=== PATIENT | male | born 1945 | race Caucasian/White ===

== ENCOUNTER 2017-05-28 06:31 | Day surgery (SDC) | payer OTHER ==
[~2017-05-28] VITALS: Ht 180.3 cm; Wt 139.4 kg
[~2017-05-28 06:31] MED LIST: CAPE500; CEPH500 PO; COMBIVENT RESPIM4 GM; COMBIVENT RESPIM4 GM IH; Cleocin HCl150 MG PO; DIGO.125 PO; DIGO.25 PO; DIGOX125 MCG; GLIP5 PO; HYDCHL12.5; HYDCHL12.5 PO; Indomethacin50 MG PO; LISI20 PO; METF500 PO; METF500C PO; METO100ER PO; OMEG1CAP30; ONDA8 PO; PRAVASTATIN SOD10 MG PO; Pravastatin Sod40 MG; Toprol Xl200 MG; UBID100 PO; VITAMIN D3400 UNI1 PO; Vitamin C1000 M1 PO; WARF1; WARF6 PO; Zestril30 MG; Zestril40 MG; [UNRECOGNIZED DRUG - OTHER] PO
== END 2017-05-28 09:10 | disposition home or self-care (01) ==
LOC: ORSCSDS 06:31
PROVIDERS: Internal Medicine Gastroenterology
PROC: 0DBP8ZX Excision of Rectum, Via Natural or Artificial Opening Endoscopic, Diagnostic (ICD-10-PCS; principal; 2017-05-28 08:00)
PROC: 0DBH8ZX Excision of Cecum, Via Natural or Artificial Opening Endoscopic, Diagnostic (ICD-10-PCS; principal; 2017-05-28 08:00)
PROC: 0DBL8ZX Excision of Transverse Colon, Via Natural or Artificial Opening Endoscopic, Diagnostic (ICD-10-PCS; principal; 2017-05-28 08:00)
DX: K92.1 Melena (principal); D12.3 Benign neoplasm of transverse colon; K62.1 Rectal polyp; D12.2 Benign neoplasm of ascending colon; K57.30 Diverticulosis of large intestine without perforation or abscess without bleeding; Z85.038 Personal history of other malignant neoplasm of large intestine; I48.91 Unspecified atrial fibrillation; R06.00 Dyspnea, unspecified; J44.9 Chronic obstructive pulmonary disease, unspecified; E11.9 Type 2 diabetes mellitus without complications; R19.7 Diarrhea, unspecified; Z87.891 Personal history of nicotine dependence; E66.01 Morbid (severe) obesity due to excess calories; Z68.42 Body mass index [BMI] 45.0-49.9, adult; F32.9 Major depressive disorder, single episode, unspecified; I10 Essential (primary) hypertension; Z79.01 Long term (current) use of anticoagulants; Z79.84 Long term (current) use of oral hypoglycemic drugs; Z79.899 Other long term (current) drug therapy
CPT/HCPCS: 82947; 88305; J0330; J1980; J2250; J2405; J7120

== ENCOUNTER → 2018-04-10 | Outpatient (CLI) | payer OTHER | LOC: LAB 17:02 → LAB SHORT 17:02 | DX: E11.9 Type 2 diabetes mellitus without complications (principal) | CPT/HCPCS: 82043 ==

== ENCOUNTER 2018-11-26 12:57 | Emergency (ER) | payer OTHER ==
[~2018-11-26] VITALS: Ht 180.3 cm; Wt 149.7 kg
[2018-11-26] MEDS ORDERED: CLIN300 PO (14:20)
== END 2018-11-26 14:52 | disposition home or self-care (01) ==
LOC: ER 12:57
DX: L03.114 Cellulitis of left upper limb (principal); E11.9 Type 2 diabetes mellitus without complications; I10 Essential (primary) hypertension; J44.9 Chronic obstructive pulmonary disease, unspecified; I48.91 Unspecified atrial fibrillation; Z87.891 Personal history of nicotine dependence; Z79.899 Other long term (current) drug therapy; Z79.84 Long term (current) use of oral hypoglycemic drugs; Z79.01 Long term (current) use of anticoagulants
CPT/HCPCS: 73130; 99283-25

== ENCOUNTER 2019-07-27 18:34 | Emergency (ER) | payer OTHER ==
[~2019-07-27] VITALS: Ht 177.8 cm; Wt 149.7 kg
[~2019-07-27 18:34] MED LIST changes: +CLIN300 PO
[2019-07-27 19:01] LABS: BASOPHILS ABSOLUTE AUTO 0.01 K/mm3 (0.00-0.23); BASOPHILS PERCENT AUTO 0 % (0-2); EOSINOPHILS ABSOLUTE AUTO 0.05 K/mm3 (0.00-0.68); EOSINOPHILS PERCENT AUTO 1 % (0-6); Hematocrit 40.4 % (37.0-53.0); Hemoglobin 12.8 g/dL (13.5-17.5); IMMATURE GRAN ABSOLUTE AUTO 0.04 K/mm3 (0.00-0.10); IMMATURE GRAN PERCENT AUTO 1 % (0-1); LYMPHOCYTES ABSOLUTE AUTO 0.73 K/mm3 (0.84-5.20); LYMPHOCYTES PERCENT AUTO 14 % (21-46); MONOCYTES ABSOLUTE AUTO 0.99 K/mm3 (0.16-1.47); MONOCYTES PERCENT AUTO 19 % (4-13); Mean Corpuscular HGB 28.4 pg (26.0-34.0); Mean Corpuscular HGB Conc 31.7 g/dL (31.5-36.5); Mean Corpuscular Volume 90 fL (80-100); Mean Platelet Volume 10.1 fL (9.1-12.4); NEUTROPHILS ABSOLUTE AUTO 3.46 K/mm3 (1.96-9.15); NEUTROPHILS PERCENT AUTO 66 % (41-73); Platelet Count 189 K/mm3 (150-400); RDW Coefficient Variation 15.5 % (11.7-14.2); RDW Standard Deviation 51.6 fL (35.1-46.3); White Blood Cell Count 5.28 K/mm3 (4.00-11.30)
[2019-07-27 19:08] LABS: Bun/Creatinine Ratio 40.4 (12.0-20.0); Creatinine, Blood 1.56 mg/dL (0.60-1.20); Potassium, Blood 4.3 mmol/L (3.5-5.5)
== END 2019-07-27 21:55 | disposition home or self-care (01) ==
LOC: ER 18:34
PROVIDERS: Emergency Medicine
DX: R19.7 Diarrhea, unspecified (principal); N28.9 Disorder of kidney and ureter, unspecified; E11.9 Type 2 diabetes mellitus without complications; I48.91 Unspecified atrial fibrillation; I50.9 Heart failure, unspecified; J44.9 Chronic obstructive pulmonary disease, unspecified; E66.01 Morbid (severe) obesity due to excess calories; Z79.899 Other long term (current) drug therapy; Z79.84 Long term (current) use of oral hypoglycemic drugs; Z79.01 Long term (current) use of anticoagulants; Z68.42 Body mass index [BMI] 45.0-49.9, adult
CPT/HCPCS: 36415; 80048; 85025; 99284

== ENCOUNTER → 2019-08-16 | Outpatient (CLI) | payer OTHER ==
[2019-08-16 09:57] LABS: International Normalized Ratio 2.1; Prothrombin Time Results 21.5 Sec (9.7-11.5)
== END | disposition home or self-care (01) ==
LOC: LAB 09:12 → LAB SHORT 09:12
PROVIDERS: Nurse Practitioner Family
DX: Z79.01 Long term (current) use of anticoagulants (principal); Z51.81 Encounter for therapeutic drug level monitoring
CPT/HCPCS: 85610

== ENCOUNTER 2021-01-12 09:08 | Emergency (ER) | payer OTHER ==
[~2021-01-12] VITALS: Ht 180.3 cm; Wt 136.1 kg
[2021-01-12] MEDS ORDERED: XARELTO20 MG PO (09:34)
[2021-01-12] MEDS ORDERED: TAMS.4ER PO (09:35)
[2021-01-12 09:37] LABS: BASOPHILS ABSOLUTE AUTO 0.03 K/mm3 (0.00-0.23); BASOPHILS PERCENT AUTO 0 % (0-2); EOSINOPHILS ABSOLUTE AUTO 0.01 K/mm3 (0.00-0.68); EOSINOPHILS PERCENT AUTO 0 % (0-6); Hematocrit 40.5 % (37.0-53.0); Hemoglobin 12.9 g/dL (13.5-17.5); IMMATURE GRAN ABSOLUTE AUTO 0.08 K/mm3 (0.00-0.10); IMMATURE GRAN PERCENT AUTO 1 % (0-1); LYMPHOCYTES ABSOLUTE AUTO 0.27 K/mm3 (0.84-5.20); LYMPHOCYTES PERCENT AUTO 2 % (21-46); MONOCYTES ABSOLUTE AUTO 0.65 K/mm3 (0.16-1.47); MONOCYTES PERCENT AUTO 4 % (4-13); Mean Corpuscular HGB 29.7 pg (26.0-34.0); Mean Corpuscular HGB Conc 31.9 g/dL (31.5-36.5); Mean Corpuscular Volume 93 fL (80-100); Mean Platelet Volume 10.2 fL (9.1-12.4); NEUTROPHILS ABSOLUTE AUTO 15.13 K/mm3 (1.96-9.15); NEUTROPHILS PERCENT AUTO 94 % (41-73); Platelet Count 152 K/mm3 (150-400); RDW Coefficient Variation 15.3 % (11.7-14.2); RDW Standard Deviation 52.8 fL (35.1-46.3); Red Blood Cell Count 4.35 M/mm3 (4.30-5.90); White Blood Cell Count 16.17 K/mm3 (4.00-11.30)
[2021-01-12 11:24] LABS: Source, Urine Voided
[2021-01-12 11:33] LABS: Bilirubin, Urine Neg (Neg); Blood, Urine 2+ (Neg); Glucose Qualitative, Urine Neg (Neg); Ketones, Urine Neg (Neg); Leukocyte Esterase, Urine Neg (Neg); Nitrite, Urine Neg (Neg); Protein, Urine 3+ (Neg); Urobilinogen, Urine NORM (Normal)
[2021-01-12 11:38] LABS: Appearance, Urine Clear (Clear); Color, Urine Yellow (P-Yellow)
[2021-01-12 11:44] LABS: Bun/Creatinine Ratio 32.5 (12.0-20.0); Calcium, Blood 9.3 mg/dL (8.5-10.1); Creatinine, Blood 1.23 mg/dL (0.60-1.20); Potassium, Blood 4.6 mmol/L (3.5-5.5)
[2021-01-12 11:57] LABS: Bacteria Not Seen /hpf; Red Blood Cells, Urine 0-2 /hpf (0-2); Squamous Epithelial Cells Rare /hpf (Few); White Blood Cells, Urine 0-2 /hpf (0-5)
[2021-01-12 12:01] LABS: Creatine Kinase MB 4.7 ng/mL (0.0-3.6)
== END 2021-01-12 12:46 | disposition home or self-care (01) ==
LOC: ER 09:08
PROVIDERS: Emergency Medicine
DX: S50.812A Abrasion of left forearm, initial encounter (principal); R53.1 Weakness; E11.9 Type 2 diabetes mellitus without complications; Z79.899 Other long term (current) drug therapy; I10 Essential (primary) hypertension; J44.9 Chronic obstructive pulmonary disease, unspecified; I48.91 Unspecified atrial fibrillation; Z87.891 Personal history of nicotine dependence; W19.XXXA Unspecified fall, initial encounter
CPT/HCPCS: 80048; 81001; 82550; 82553; 83735; 85025; 93005; 93010; 99285-25

== ENCOUNTER 2021-06-07 20:38 | Emergency (ER) | payer OTHER ==
[~2021-06-07] VITALS: Ht 180.3 cm; Wt 149.7 kg
[~2021-06-07 20:38] MED LIST changes: +TAMS.4ER PO; +XARELTO20 MG PO
[2021-06-07 21:08] LABS: BASOPHILS ABSOLUTE AUTO 0.02 K/mm3 (0.00-0.23); BASOPHILS PERCENT AUTO 0 % (0-2); EOSINOPHILS ABSOLUTE AUTO 0.13 K/mm3 (0.00-0.68); EOSINOPHILS PERCENT AUTO 2 % (0-6); Hematocrit 40.3 % (37.0-53.0); Hemoglobin 12.8 g/dL (13.5-17.5); IMMATURE GRAN ABSOLUTE AUTO 0.06 K/mm3 (0.00-0.10); IMMATURE GRAN PERCENT AUTO 1 % (0-1); LYMPHOCYTES ABSOLUTE AUTO 1.18 K/mm3 (0.84-5.20); LYMPHOCYTES PERCENT AUTO 17 % (21-46); MONOCYTES ABSOLUTE AUTO 0.51 K/mm3 (0.16-1.47); MONOCYTES PERCENT AUTO 7 % (4-13); Mean Corpuscular HGB 29.9 pg (26.0-34.0); Mean Corpuscular HGB Conc 31.8 g/dL (31.5-36.5); Mean Corpuscular Volume 94 fL (80-100); Mean Platelet Volume 10.1 fL (9.1-12.4); NEUTROPHILS ABSOLUTE AUTO 5.13 K/mm3 (1.96-9.15); NEUTROPHILS PERCENT AUTO 73 % (41-73); Platelet Count 163 K/mm3 (150-400); RDW Coefficient Variation 15.3 % (11.7-14.2); RDW Standard Deviation 52.7 fL (35.1-46.3); Red Blood Cell Count 4.28 M/mm3 (4.30-5.90); White Blood Cell Count 7.03 K/mm3 (4.00-11.30)
[2021-06-07 21:17] LABS: Anion Gap 6 mmol/L (6-16); Blood Urea Nitrogen 39 mg/dL (8-24); Bun/Creatinine Ratio 38.2 (12.0-20.0); CO2, Blood 26 mmol/L (21-32); Calcium, Blood 9.4 mg/dL (8.5-10.1); Chloride, Blood 106 mmol/L (98-108); Creatinine, Blood 1.02 mg/dL (0.60-1.20); Glomerular Filtration Rate >60 (60-); Glucose, Blood 155 mg/dL (70-99); Potassium, Blood 4.6 mmol/L (3.5-5.5); Sodium, Blood 138 mmol/L (136-145)
[2021-06-07 22:12] LABS: International Normalized Ratio 1.1; Prothrombin Time Results 11.5 Sec (9.7-11.5)
[2021-06-07] MEDS ORDERED: CONSTULOSE10 GM/155 PO (23:25)
[2021-06-07] MEDS ORDERED: DOC250 PO (23:25)
== END 2021-06-07 22:00 | disposition home or self-care (01) ==
LOC: ER 20:38
PROVIDERS: Student in an Organized Health Care Education/Training Program
DX: K92.1 Melena (principal); D64.9 Anemia, unspecified; K59.00 Constipation, unspecified; T45.515A Adverse effect of anticoagulants, initial encounter; Z87.891 Personal history of nicotine dependence
CPT/HCPCS: 36415; 72193; 80048; 82272; 85025; 85610; 85730; 86850; 86900; 86901; 93005; 93010; 99284-25; Q9967

== ENCOUNTER → 2022-06-20 | Outpatient (CLI) | payer OTHER ==
[~2022-06-20] MED LIST changes: +CONSTULOSE10 GM/155 PO; +DOC250 PO
[2022-06-20 11:39] LABS: BASOPHILS ABSOLUTE AUTO 0.02 K/mm3 (0.00-0.23); BASOPHILS PERCENT AUTO 0 % (0-2); EOSINOPHILS ABSOLUTE AUTO 0.13 K/mm3 (0.00-0.68); EOSINOPHILS PERCENT AUTO 2 % (0-6); Hematocrit 35.8 % (37.0-53.0); Hemoglobin 11.5 g/dL (13.5-17.5); IMMATURE GRAN ABSOLUTE AUTO 0.01 K/mm3 (0.00-0.10); IMMATURE GRAN PERCENT AUTO 0 % (0-1); LYMPHOCYTES ABSOLUTE AUTO 1.11 K/mm3 (0.84-5.20); LYMPHOCYTES PERCENT AUTO 17 % (21-46); MONOCYTES ABSOLUTE AUTO 0.47 K/mm3 (0.16-1.47); MONOCYTES PERCENT AUTO 7 % (4-13); Mean Corpuscular HGB 29.7 pg (26.0-34.0); Mean Corpuscular HGB Conc 32.1 g/dL (31.5-36.5); Mean Corpuscular Volume 93 fL (80-100); Mean Platelet Volume 11.1 fL (9.1-12.4); NEUTROPHILS ABSOLUTE AUTO 4.99 K/mm3 (1.96-9.15); NEUTROPHILS PERCENT AUTO 74 % (41-73); Platelet Count 168 K/mm3 (150-400); RDW Coefficient Variation 14.6 % (11.7-14.2); RDW Standard Deviation 49.9 fL (35.1-46.3); Red Blood Cell Count 3.87 M/mm3 (4.30-5.90); White Blood Cell Count 6.73 K/mm3 (4.00-11.30)
[2022-06-20 12:09] LABS: Alanine Aminotransfer (ALT/SGP 15 U/L (12-78); Albumin, Blood 3.7 g/dL (3.4-5.0); Alk Phos 52 U/L (50-136); Anion Gap 5 mmol/L (6-16); Aspartate Aminotrans (AST/SGOT 13 U/L (12-37); Bilirubin, Total 0.6 mg/dL (0.1-1.0); Blood Urea Nitrogen 41 mg/dL (8-24); Bun/Creatinine Ratio 45.3 (12.0-20.0); CHOL/HDL RATIO 3.4; CO2, Blood 24 mmol/L (21-32); Calcium, Blood 9.1 mg/dL (8.5-10.1); Chloride, Blood 107 mmol/L (98-108); Cholesterol 105 mg/dL (50-200); Creatinine, Blood 0.91 mg/dL (0.60-1.20); Globulin, Blood 3.6 g/dL (2.2-4.0); Glomerular Filtration Rate 87 (60-); Glucose, Blood 215 mg/dL (70-99); HDL Cholesterol 31 mg/dL (>39); LDL/HDL RATIO 1.6; Low Density Lipoprotein Chol 48 mg/dL (0-110); Potassium, Blood 4.5 mmol/L (3.5-5.5); Sodium, Blood 136 mmol/L (136-145); Total Protein, Blood 7.3 g/dL (6.4-8.2); Triglycerides 128 mg/dL (30-160); Very Low Density Lipoprot Chol 25 mg/dL (6-32)
== END | disposition home or self-care (01) ==
LOC: LAB SHORT 08:40
PROVIDERS: Nurse Practitioner Family
DX: E11.51 Type 2 diabetes mellitus with diabetic peripheral angiopathy without gangrene (principal); E11.42 Type 2 diabetes mellitus with diabetic polyneuropathy; E11.59 Type 2 diabetes mellitus with other circulatory complications; E11.69 Type 2 diabetes mellitus with other specified complication; N40.1 Benign prostatic hyperplasia with lower urinary tract symptoms
CPT/HCPCS: 80053; 80061; 84153; 85025

== ENCOUNTER 2022-08-05 22:08 | Emergency (ER) | payer OTHER ==
[~2022-08-05] VITALS: Ht 180.3 cm; Wt 131.5 kg
[2022-08-05 22:31] VITALS: BP 112/66
== END 2022-08-06 01:47 | disposition home or self-care (01) ==
LOC: ER 22:08
DX: Z04.3 Encounter for examination and observation following other accident (principal); W06.XXXA Fall from bed, initial encounter; E11.9 Type 2 diabetes mellitus without complications; I10 Essential (primary) hypertension; J44.9 Chronic obstructive pulmonary disease, unspecified; I48.91 Unspecified atrial fibrillation; Z79.899 Other long term (current) drug therapy; Z79.84 Long term (current) use of oral hypoglycemic drugs; Z79.01 Long term (current) use of anticoagulants; Z87.891 Personal history of nicotine dependence
CPT/HCPCS: 99283

== ENCOUNTER 2022-11-08 13:34 | Day surgery (SDC) | payer OTHER ==
[~2022-11-08] VITALS: Ht 180.3 cm; Wt 112.0 kg
[2022-11-08 16:14] VITALS: BP 107/65
== END 2022-11-08 15:11 | disposition home or self-care (01) ==
LOC: ORSCSDS 13:34
PROVIDERS: Internal Medicine Gastroenterology
PROC: 0DBM8ZX Excision of Descending Colon, Via Natural or Artificial Opening Endoscopic, Diagnostic (ICD-10-PCS; principal; 2022-11-08 15:00)
PROC: 0DBK8ZX Excision of Ascending Colon, Via Natural or Artificial Opening Endoscopic, Diagnostic (ICD-10-PCS; principal; 2022-11-08 15:00)
DX: K92.1 Melena (principal); D12.2 Benign neoplasm of ascending colon; D12.4 Benign neoplasm of descending colon; Z85.048 Personal history of other malignant neoplasm of rectum, rectosigmoid junction, and anus; K57.30 Diverticulosis of large intestine without perforation or abscess without bleeding; K64.8 Other hemorrhoids; E11.9 Type 2 diabetes mellitus without complications; Z87.891 Personal history of nicotine dependence; I10 Essential (primary) hypertension; J45.909 Unspecified asthma, uncomplicated; I48.20 Chronic atrial fibrillation, unspecified; Z79.01 Long term (current) use of anticoagulants; Z79.84 Long term (current) use of oral hypoglycemic drugs; Z79.899 Other long term (current) drug therapy; Z79.4 Long term (current) use of insulin; J44.9 Chronic obstructive pulmonary disease, unspecified; E66.01 Morbid (severe) obesity due to excess calories; Z68.42 Body mass index [BMI] 45.0-49.9, adult
CPT/HCPCS: 82947; 88305; J0461; J2001; J2405; J2704; J7120; Q9968

== ENCOUNTER 2023-04-09 20:27 | Emergency (ER) | payer OTHER ==
[~2023-04-09] VITALS: Ht 180.3 cm; Wt 109.8 kg
[2023-04-09 21:21] LABS: BASOPHILS ABSOLUTE AUTO 0.01 K/mm3 (0.00-0.23); BASOPHILS PERCENT AUTO 0 % (0-2); EOSINOPHILS ABSOLUTE AUTO 0.09 K/mm3 (0.00-0.68); EOSINOPHILS PERCENT AUTO 2 % (0-6); Hematocrit 22.2 % (37.0-53.0); Hemoglobin 6.9 g/dL (13.5-17.5); IMMATURE GRAN ABSOLUTE AUTO 0.01 K/mm3 (0.00-0.10); IMMATURE GRAN PERCENT AUTO 0 % (0-1); LYMPHOCYTES ABSOLUTE AUTO 0.94 K/mm3 (0.84-5.20); LYMPHOCYTES PERCENT AUTO 18 % (21-46); MONOCYTES ABSOLUTE AUTO 0.38 K/mm3 (0.16-1.47); MONOCYTES PERCENT AUTO 7 % (4-13); Mean Corpuscular HGB Conc 31.1 g/dL (31.5-36.5); Mean Corpuscular Volume 90 fL (80-100); Mean Platelet Volume 10.8 fL (9.1-12.4); NEUTROPHILS ABSOLUTE AUTO 3.92 K/mm3 (1.96-9.15); NEUTROPHILS PERCENT AUTO 73 % (41-73); Platelet Count 186 K/mm3 (150-400); RDW Coefficient Variation 13.5 % (11.7-14.2); Red Blood Cell Count 2.46 M/mm3 (4.30-5.90); White Blood Cell Count 5.35 K/mm3 (4.00-11.30)
[2023-04-09 21:42] LABS: Albumin, Blood 3.7 g/dL (3.4-5.0); Albumin/Globulin Ratio 1.1 (0.8-1.8); Bilirubin, Total 0.3 mg/dL (0.1-1.0); Bun/Creatinine Ratio 38.7 (12.0-20.0); Calcium, Blood 9.1 mg/dL (8.5-10.1); Creatinine, Blood 1.19 mg/dL (0.60-1.20); Globulin, Blood 3.4 g/dL (2.2-4.0); International Normalized Ratio 1.13; Potassium, Blood 4.4 mmol/L (3.5-5.5); Prothrombin Time Results 11.8 Sec (9.7-11.5); Total Protein, Blood 7.1 g/dL (6.4-8.2)
[2023-04-10 02:32] LABS: BASOPHILS ABSOLUTE AUTO 0.02 K/mm3 (0.00-0.23); BASOPHILS PERCENT AUTO 0 % (0-2); EOSINOPHILS ABSOLUTE AUTO 0.08 K/mm3 (0.00-0.68); EOSINOPHILS PERCENT AUTO 1 % (0-6); Hematocrit 23.5 % (37.0-53.0); Hemoglobin 7.5 g/dL (13.5-17.5); IMMATURE GRAN ABSOLUTE AUTO 0.02 K/mm3 (0.00-0.10); IMMATURE GRAN PERCENT AUTO 0 % (0-1); LYMPHOCYTES ABSOLUTE AUTO 1.21 K/mm3 (0.84-5.20); LYMPHOCYTES PERCENT AUTO 21 % (21-46); MONOCYTES ABSOLUTE AUTO 0.49 K/mm3 (0.16-1.47); MONOCYTES PERCENT AUTO 9 % (4-13); Mean Corpuscular HGB 28.7 pg (26.0-34.0); Mean Corpuscular HGB Conc 31.9 g/dL (31.5-36.5); Mean Corpuscular Volume 90 fL (80-100); Mean Platelet Volume 10.6 fL (9.1-12.4); NEUTROPHILS ABSOLUTE AUTO 3.97 K/mm3 (1.96-9.15); NEUTROPHILS PERCENT AUTO 69 % (41-73); Platelet Count 173 K/mm3 (150-400); RDW Coefficient Variation 13.6 % (11.7-14.2); RDW Standard Deviation 44.4 fL (35.1-46.3); Red Blood Cell Count 2.61 M/mm3 (4.30-5.90); White Blood Cell Count 5.79 K/mm3 (4.00-11.30)
[2023-04-10 03:12] VITALS: BP 123/72
== END 2023-04-10 03:28 | disposition home or self-care (01) ==
LOC: ER 20:27
PROVIDERS: Physician Assistant; Student in an Organized Health Care Education/Training Program
DX: K92.1 Melena (principal); E11.9 Type 2 diabetes mellitus without complications; I10 Essential (primary) hypertension; J44.9 Chronic obstructive pulmonary disease, unspecified; Z87.891 Personal history of nicotine dependence; Z79.899 Other long term (current) drug therapy
CPT/HCPCS: 36430; 80053; 82272; 85025; 85610; 85730; 86850; 86900; 86901; 86923; 93005; 93010; 99284-25; J7030; P9016

== ENCOUNTER 2023-04-16 19:13 | Emergency (ER) | payer OTHER ==
[~2023-04-16] VITALS: Ht 180.3 cm; Wt 107.0 kg
[2023-04-16 19:43] LABS: BASOPHILS ABSOLUTE AUTO 0.03 K/mm3 (0.00-0.23); BASOPHILS PERCENT AUTO 1 % (0-2); EOSINOPHILS ABSOLUTE AUTO 0.05 K/mm3 (0.00-0.68); EOSINOPHILS PERCENT AUTO 1 % (0-6); Hematocrit 25.6 % (37.0-53.0); Hemoglobin 7.8 g/dL (13.5-17.5); IMMATURE GRAN ABSOLUTE AUTO 0.02 K/mm3 (0.00-0.10); IMMATURE GRAN PERCENT AUTO 0 % (0-1); LYMPHOCYTES ABSOLUTE AUTO 1.27 K/mm3 (0.84-5.20); LYMPHOCYTES PERCENT AUTO 21 % (21-46); MONOCYTES ABSOLUTE AUTO 0.48 K/mm3 (0.16-1.47); MONOCYTES PERCENT AUTO 8 % (4-13); Mean Corpuscular HGB 27.6 pg (26.0-34.0); Mean Corpuscular HGB Conc 30.5 g/dL (31.5-36.5); Mean Corpuscular Volume 91 fL (80-100); Mean Platelet Volume 10.8 fL (9.1-12.4); NEUTROPHILS ABSOLUTE AUTO 4.19 K/mm3 (1.96-9.15); NEUTROPHILS PERCENT AUTO 70 % (41-73); Platelet Count 186 K/mm3 (150-400); RDW Coefficient Variation 14.3 % (11.7-14.2); RDW Standard Deviation 47.3 fL (35.1-46.3); Red Blood Cell Count 2.83 M/mm3 (4.30-5.90); White Blood Cell Count 6.04 K/mm3 (4.00-11.30)
[2023-04-16 20:05] LABS: Albumin, Blood 3.7 g/dL (3.4-5.0); Bilirubin, Total 0.3 mg/dL (0.1-1.0); Bun/Creatinine Ratio 40.2 (12.0-20.0); Calcium, Blood 9.4 mg/dL (8.5-10.1); Creatinine, Blood 1.22 mg/dL (0.60-1.20); Globulin, Blood 3.6 g/dL (2.2-4.0); Potassium, Blood 4.5 mmol/L (3.5-5.5); Total Protein, Blood 7.3 g/dL (6.4-8.2)
[2023-04-16 22:20] LABS: Chloride (POC) 108 mmol/L (98-108); Creatinine (POC) 1.3 mg/dL (0.8-1.3); Glucose (ISTAT POC) 96 mg/dL (70-99); Hemoglobin (POC) 7.8 g/dL (13.5-17.5); Potassium (POC) 4.7 mmol/L (3.5-5.5); Sodium (POC) 139 mmol/L (135-148); Total CO2 (POC) 21 mmol/L (21-32)
[2023-04-16 23:30] VITALS: BP 126/89
== END 2023-04-16 23:45 | disposition home or self-care (01) ==
LOC: ER 19:13
PROVIDERS: Student in an Organized Health Care Education/Training Program
DX: K92.1 Melena (principal); T45.515A Adverse effect of anticoagulants, initial encounter; Z87.19 Personal history of other diseases of the digestive system; E11.9 Type 2 diabetes mellitus without complications; I10 Essential (primary) hypertension; J44.9 Chronic obstructive pulmonary disease, unspecified; I48.91 Unspecified atrial fibrillation; Z87.891 Personal history of nicotine dependence; Z79.84 Long term (current) use of oral hypoglycemic drugs; Z79.01 Long term (current) use of anticoagulants; Z79.899 Other long term (current) drug therapy
CPT/HCPCS: 80047; 80053; 85014; 85018; 85025; 86850; 86900; 86901; 93005; 93010; 99285-25

== ENCOUNTER → 2023-04-16 | Outpatient (CLI) | payer OTHER ==
[~2023-04-16] MED LIST changes: -HYDCHL12.5 PO; +HYDCHL25 PO
[2023-04-16 16:50] LABS: Hematocrit 24.9 % (37.0-53.0); Hemoglobin 7.7 g/dL (13.5-17.5)
== END | disposition home or self-care (01) ==
LOC: LAB SHORT 15:43 → LAB 15:43
PROVIDERS: Nurse Practitioner Family
DX: K92.1 Melena (principal)
CPT/HCPCS: 85014; 85018

== ENCOUNTER 2023-04-20 19:00 | Emergency (ER) | payer OTHER ==
[~2023-04-20] VITALS: Ht 180.3 cm; Wt 106.6 kg
[2023-04-20 19:21] LABS: BASOPHILS ABSOLUTE AUTO 0.01 K/mm3 (0.00-0.23); BASOPHILS PERCENT AUTO 0 % (0-2); EOSINOPHILS PERCENT AUTO 2 % (0-6); Hematocrit 23.1 % (37.0-53.0); Hemoglobin 7.2 g/dL (13.5-17.5); IMMATURE GRAN ABSOLUTE AUTO 0.02 K/mm3 (0.00-0.10); IMMATURE GRAN PERCENT AUTO 0 % (0-1); LYMPHOCYTES ABSOLUTE AUTO 1.56 K/mm3 (0.84-5.20); LYMPHOCYTES PERCENT AUTO 28 % (21-46); MONOCYTES ABSOLUTE AUTO 0.49 K/mm3 (0.16-1.47); MONOCYTES PERCENT AUTO 9 % (4-13); Mean Corpuscular HGB 27.5 pg (26.0-34.0); Mean Corpuscular HGB Conc 31.2 g/dL (31.5-36.5); Mean Corpuscular Volume 88 fL (80-100); NEUTROPHILS ABSOLUTE AUTO 3.46 K/mm3 (1.96-9.15); NEUTROPHILS PERCENT AUTO 61 % (41-73); Platelet Count 196 K/mm3 (150-400); RDW Coefficient Variation 14.3 % (11.7-14.2); RDW Standard Deviation 45.6 fL (35.1-46.3); Red Blood Cell Count 2.62 M/mm3 (4.30-5.90); White Blood Cell Count 5.64 K/mm3 (4.00-11.30)
[2023-04-20 19:39] LABS: Albumin, Blood 3.7 g/dL (3.4-5.0); Albumin/Globulin Ratio 1.2 (0.8-1.8); Bilirubin, Total 0.4 mg/dL (0.1-1.0); Bun/Creatinine Ratio 29.9 (12.0-20.0); Calcium, Blood 9.1 mg/dL (8.5-10.1); Creatinine, Blood 1.27 mg/dL (0.60-1.20); Globulin, Blood 3.2 g/dL (2.2-4.0); Potassium, Blood 4.4 mmol/L (3.5-5.5); Total Protein, Blood 6.9 g/dL (6.4-8.2)
[2023-04-21 01:43] VITALS: BP 118/60
== END 2023-04-21 01:43 | disposition home or self-care (01) ==
LOC: ER 19:00
PROVIDERS: Physician Assistant
DX: K92.1 Melena (principal); E11.9 Type 2 diabetes mellitus without complications; I10 Essential (primary) hypertension; J44.9 Chronic obstructive pulmonary disease, unspecified; I48.91 Unspecified atrial fibrillation; Z86.010 Personal history of colon polyps; Z79.899 Other long term (current) drug therapy; Z79.84 Long term (current) use of oral hypoglycemic drugs; Z79.01 Long term (current) use of anticoagulants
CPT/HCPCS: 74174; 80053; 82272; 85025; 86850; 86900; 86901; 99284-25; Q9967

== ENCOUNTER 2023-04-25 02:08 | Emergency (ER) | payer OTHER ==
[~2023-04-25] VITALS: Ht 180.3 cm; Wt 107.0 kg
[2023-04-25 02:32] LABS: BASOPHILS ABSOLUTE AUTO 0.01 K/mm3 (0.00-0.23); BASOPHILS PERCENT AUTO 0 % (0-2); EOSINOPHILS ABSOLUTE AUTO 0.11 K/mm3 (0.00-0.68); EOSINOPHILS PERCENT AUTO 2 % (0-6); Hematocrit 25.5 % (37.0-53.0); Hemoglobin 7.7 g/dL (13.5-17.5); IMMATURE GRAN ABSOLUTE AUTO 0.02 K/mm3 (0.00-0.10); IMMATURE GRAN PERCENT AUTO 0 % (0-1); LYMPHOCYTES ABSOLUTE AUTO 1.39 K/mm3 (0.84-5.20); LYMPHOCYTES PERCENT AUTO 24 % (21-46); MONOCYTES ABSOLUTE AUTO 0.45 K/mm3 (0.16-1.47); MONOCYTES PERCENT AUTO 8 % (4-13); Mean Corpuscular HGB Conc 30.2 g/dL (31.5-36.5); Mean Corpuscular Volume 90 fL (80-100); Mean Platelet Volume 10.5 fL (9.1-12.4); NEUTROPHILS ABSOLUTE AUTO 3.83 K/mm3 (1.96-9.15); NEUTROPHILS PERCENT AUTO 66 % (41-73); Platelet Count 204 K/mm3 (150-400); RDW Coefficient Variation 14.6 % (11.7-14.2); RDW Standard Deviation 46.7 fL (35.1-46.3); Red Blood Cell Count 2.85 M/mm3 (4.30-5.90); White Blood Cell Count 5.81 K/mm3 (4.00-11.30)
[2023-04-25 02:53] LABS: Albumin, Blood 3.8 g/dL (3.4-5.0); Albumin/Globulin Ratio 1.2 (0.8-1.8); Bilirubin, Total 0.5 mg/dL (0.1-1.0); Calcium, Blood 8.7 mg/dL (8.5-10.1); Creatinine, Blood 1.2 mg/dL (0.60-1.20); Globulin, Blood 3.3 g/dL (2.2-4.0); Potassium, Blood 4.4 mmol/L (3.5-5.5); Total Protein, Blood 7.1 g/dL (6.4-8.2)
[2023-04-25 04:30] VITALS: BP 113/52
== END 2023-04-25 04:37 | disposition home or self-care (01) ==
LOC: ER 02:08
PROVIDERS: Emergency Medicine
DX: K92.1 Melena (principal); E11.9 Type 2 diabetes mellitus without complications; I10 Essential (primary) hypertension; J44.9 Chronic obstructive pulmonary disease, unspecified; I48.91 Unspecified atrial fibrillation; Z79.01 Long term (current) use of anticoagulants; Z79.84 Long term (current) use of oral hypoglycemic drugs; Z79.899 Other long term (current) drug therapy
CPT/HCPCS: 80053; 85025; 86850; 86900; 86901; 99283

== ENCOUNTER 2024-02-04 18:55 | Emergency (ER) | payer OTHER ==
[~2024-02-04] VITALS: Ht 180.3 cm; Wt 96.2 kg
[2024-02-04 21:17] LABS: Source, Urine Clean Catch
[2024-02-04 21:29] LABS: Appearance, Urine Clear (Clear); Bilirubin, Urine Neg (Neg); Blood, Urine 3+ (Neg); Glucose Qualitative, Urine Neg (Neg); Ketones, Urine Neg (Neg); Leukocyte Esterase, Urine Neg (Neg); Nitrite, Urine Neg (Neg); Protein, Urine Neg (Neg); Specific Gravity, Urine 1.015 (1.003-1.022); Urobilinogen, Urine NORM (Normal)
[2024-02-04 21:30] LABS: Color, Urine Pale Yellow (P-Yellow)
[2024-02-04 21:46] LABS: Bacteria Not Seen /hpf; Red Blood Cells, Urine 0-2 /hpf (0-2); Squamous Epithelial Cells Rare /hpf (Few); White Blood Cells, Urine Not Seen /hpf (0-5)
[2024-02-04 21:49] LABS: BASOPHILS ABSOLUTE AUTO 0.03 K/mm3 (0.00-0.23); BASOPHILS PERCENT AUTO 0 % (0-2); EOSINOPHILS ABSOLUTE AUTO 0.11 K/mm3 (0.00-0.68); EOSINOPHILS PERCENT AUTO 1 % (0-6); Hematocrit 31.8 % (37.0-53.0); Hemoglobin 10.3 g/dL (13.5-17.5); IMMATURE GRAN ABSOLUTE AUTO 0.02 K/mm3 (0.00-0.10); IMMATURE GRAN PERCENT AUTO 0 % (0-1); LYMPHOCYTES PERCENT AUTO 17 % (21-46); MONOCYTES ABSOLUTE AUTO 0.48 K/mm3 (0.16-1.47); MONOCYTES PERCENT AUTO 6 % (4-13); Mean Corpuscular HGB 29.9 pg (26.0-34.0); Mean Corpuscular HGB Conc 32.4 g/dL (31.5-36.5); Mean Corpuscular Volume 92 fL (80-100); NEUTROPHILS ABSOLUTE AUTO 6.16 K/mm3 (1.96-9.15); NEUTROPHILS PERCENT AUTO 75 % (41-73); Platelet Count 143 K/mm3 (150-400); RDW Coefficient Variation 13.6 % (11.7-14.2); RDW Standard Deviation 46.1 fL (35.1-46.3); Red Blood Cell Count 3.44 M/mm3 (4.30-5.90)
[2024-02-04 22:14] LABS: Albumin, Blood 3.9 g/dL (3.4-5.0); Albumin/Globulin Ratio 1.2 (0.8-1.8); Bilirubin, Total 0.5 mg/dL (0.1-1.0); Calcium, Blood 9.4 mg/dL (8.5-10.1); Globulin, Blood 3.3 g/dL (2.2-4.0); Potassium, Blood 4.5 mmol/L (3.5-5.5); Total Protein, Blood 7.2 g/dL (6.4-8.2)
[2024-02-05 01:30] VITALS: BP 106/66
[2024-02-05] MEDS ORDERED: DIAPER RASH TOP (02:30)
[2024-02-05] MEDS ORDERED: VITAMIN A TOP PRN (02:35)
[2024-02-05] MEDS ORDERED: [UNRECOGNIZED DRUG - OTHER] TOP PRN (02:35)
== END 2024-02-05 02:52 | disposition home or self-care (01) ==
LOC: ER 18:55
PROVIDERS: Student in an Organized Health Care Education/Training Program
DX: K62.89 Other specified diseases of anus and rectum (principal); E11.9 Type 2 diabetes mellitus without complications; I10 Essential (primary) hypertension; J44.9 Chronic obstructive pulmonary disease, unspecified; I48.91 Unspecified atrial fibrillation; Z87.891 Personal history of nicotine dependence; Z79.84 Long term (current) use of oral hypoglycemic drugs; Z79.899 Other long term (current) drug therapy
CPT/HCPCS: 80053; 81001; 85025; 99283; A9270

== ENCOUNTER → 2024-07-06 | Outpatient (CLI) | payer OTHER ==
[~2024-07-06] MED LIST changes: +DIAPER RASH TOP
[2024-07-06 17:11] LABS: BASOPHILS ABSOLUTE AUTO 0.01 K/mm3 (0.00-0.23); BASOPHILS PERCENT AUTO 0 % (0-2); EOSINOPHILS ABSOLUTE AUTO 0.13 K/mm3 (0.00-0.68); EOSINOPHILS PERCENT AUTO 3 % (0-6); Hematocrit 32.9 % (37.0-53.0); Hemoglobin 10.5 g/dL (13.5-17.5); IMMATURE GRAN ABSOLUTE AUTO 0.01 K/mm3 (0.00-0.10); IMMATURE GRAN PERCENT AUTO 0 % (0-1); LYMPHOCYTES ABSOLUTE AUTO 0.73 K/mm3 (0.84-5.20); LYMPHOCYTES PERCENT AUTO 19 % (21-46); MONOCYTES PERCENT AUTO 8 % (4-13); Mean Corpuscular HGB 29.9 pg (26.0-34.0); Mean Corpuscular HGB Conc 31.9 g/dL (31.5-36.5); Mean Corpuscular Volume 94 fL (80-100); Mean Platelet Volume 11.8 fL (9.1-12.4); NEUTROPHILS ABSOLUTE AUTO 2.72 K/mm3 (1.96-9.15); NEUTROPHILS PERCENT AUTO 70 % (41-73); Platelet Count 128 K/mm3 (150-400); RDW Coefficient Variation 13.9 % (11.7-14.2); RDW Standard Deviation 47.1 fL (35.1-46.3); Red Blood Cell Count 3.51 M/mm3 (4.30-5.90)
== END ==
LOC: LAB 16:25 → LAB SHORT 16:25
PROVIDERS: Nurse Practitioner Family
DX: E11.51 Type 2 diabetes mellitus with diabetic peripheral angiopathy without gangrene (principal); E11.59 Type 2 diabetes mellitus with other circulatory complications; E11.42 Type 2 diabetes mellitus with diabetic polyneuropathy; E11.69 Type 2 diabetes mellitus with other specified complication
CPT/HCPCS: 85025

== ENCOUNTER 2024-07-27 19:42 | Observation (INO) | payer OTHER ==
[~2024-07-27] VITALS: Ht 180.3 cm; Wt 99.1 kg
[~2024-07-27 19:42] MED LIST changes: +DIGOX125 MC1 PO; -DIGOX125 MCG; -Pravastatin Sod40 MG; +Pravastatin Sod40 MG PO
[2024-07-27 20:25] LABS: BASOPHILS ABSOLUTE AUTO 0.02 K/mm3 (0.00-0.23); BASOPHILS PERCENT AUTO 0 % (0-2); EOSINOPHILS ABSOLUTE AUTO 0.14 K/mm3 (0.00-0.68); EOSINOPHILS PERCENT AUTO 2 % (0-6); Hematocrit 31.1 % (37.0-53.0); Hemoglobin 10.1 g/dL (13.5-17.5); IMMATURE GRAN ABSOLUTE AUTO 0.02 K/mm3 (0.00-0.10); IMMATURE GRAN PERCENT AUTO 0 % (0-1); LYMPHOCYTES ABSOLUTE AUTO 1.43 K/mm3 (0.84-5.20); LYMPHOCYTES PERCENT AUTO 23 % (21-46); MONOCYTES ABSOLUTE AUTO 0.52 K/mm3 (0.16-1.47); MONOCYTES PERCENT AUTO 8 % (4-13); Mean Corpuscular HGB 30.2 pg (26.0-34.0); Mean Corpuscular HGB Conc 32.5 g/dL (31.5-36.5); Mean Corpuscular Volume 93 fL (80-100); NEUTROPHILS ABSOLUTE AUTO 4.16 K/mm3 (1.96-9.15); NEUTROPHILS PERCENT AUTO 66 % (41-73); Platelet Count 118 K/mm3 (150-400); RDW Coefficient Variation 14.3 % (11.7-14.2); RDW Standard Deviation 49.2 fL (35.1-46.3); Red Blood Cell Count 3.34 M/mm3 (4.30-5.90); White Blood Cell Count 6.29 K/mm3 (4.00-11.30)
[2024-07-27 20:49] LABS: Albumin, Blood 3.7 g/dL (3.4-5.0); Albumin/Globulin Ratio 1.2 (0.8-1.8); Bilirubin, Total 0.3 mg/dL (0.1-1.0); Calcium, Blood 8.9 mg/dL (8.5-10.1); Creatinine, Blood 1.51 mg/dL (0.60-1.20); Globulin, Blood 3.2 g/dL (2.2-4.0); Potassium, Blood 4.3 mmol/L (3.5-5.5); Total Protein, Blood 6.9 g/dL (6.4-8.2)
[2024-07-27] MEDS ORDERED: Acetaminophen 325 MG TABLET PO PRN (22:40)
[2024-07-27] MEDS ORDERED: Ondansetron HCl 2 MG / ML 2ML Vial IV PRN (22:45)
[2024-07-27] MEDS ORDERED: Lactated Ringer's 1,000 ML IV SCH (23:00)
[2024-07-27] MEDS ORDERED: ORGOVYX120 MG PO (23:11)
[2024-07-27 23:56] VITALS: BP 124/75
[2024-07-28] MEDS ORDERED: Phenylephrine HCl 100 MCG/ML-NS 10MLSYR (1MG/10ML) IV ONE (00:11)
[2024-07-28 02:24] LABS: Hematocrit 29.3 % (37.0-53.0); Hemoglobin 9.7 g/dL (13.5-17.5)
[2024-07-28 02:41] LABS: Albumin, Blood 3.6 g/dL (3.4-5.0); Albumin/Globulin Ratio 1.2 (0.8-1.8); Bilirubin, Total 0.4 mg/dL (0.1-1.0); Calcium, Blood 8.9 mg/dL (8.5-10.1); Creatinine, Blood 1.31 mg/dL (0.60-1.20); Globulin, Blood 2.9 g/dL (2.2-4.0); Magnesium, Blood 2.1 mg/dL (1.6-2.4); Potassium, Blood 4.4 mmol/L (3.5-5.5); Total Protein, Blood 6.5 g/dL (6.4-8.2)
[2024-07-28 02:54] VITALS: BP 120/67
--- NOTE | 2024-07-28 05:46 | NUR ---
Shift Summary Pt admitted from ED for GI bleed. He was having loose bloody BMs at home and in the ED, after arriving to this unit he had one other loose BM since arrival but it appeared to have no blood. Pt has been NPO in anticipation of scope procedure today. He is AOx4, ind in the room, cooperative with care. On tele running afib at 67. SCDs on as ordered.
[2024-07-28 07:30] VITALS: BP 131/65
[2024-07-28 07:47] LABS: Hematocrit 30.9 % (37.0-53.0); Hemoglobin 10.1 g/dL (13.5-17.5)
[2024-07-28] MEDS ORDERED: Docusate Sodium 100 MG Cap PO SCH (09:00)
[2024-07-28] MEDS ORDERED: Sod Phosphate/Sod Biphosphate 132 ML BTL PR ONE ×2 (11:20→12:30)
[2024-07-28 11:52] VITALS: BP 115/65
--- NOTE | 2024-07-28 13:55 | NUR ---
CLIENT OUT TO DAY SURGERY AT 1350.
[2024-07-28 14:05] VITALS: BP 146/79
[2024-07-28 14:15] LABS: Hematocrit 34.3 % (37.0-53.0); Hemoglobin 11.4 g/dL (13.5-17.5)
--- NOTE | 2024-07-28 14:16 | NUR ---
History, Chart, Medications and Allergies reviewed before start of procedure. Patient confirms NPO status and agrees with scheduled surgery. Pre-Op teaching done. Pt verbalizes understanding. Lungs coarse, clears with cough. Reports baseline SOB.
[2024-07-28] MEDS ORDERED: propofoL 20 ML IV ONE ×2 (14:49→14:55)
--- NOTE | 2024-07-28 14:57 | NUR ---
07/28/24 1457 Ellie Araiza History, Chart, Medications and Allergies reviewed before start of procedure. See Anesthesia record for Dr. Karlo colbert.
[2024-07-28 15:44] VITALS: BP 122/60
--- NOTE | 2024-07-28 17:11 | NUR ---
SHIFT SUMMARY A&O X4. SIGMOIDOSCOPY PERFORMED. DIET CHANGED TO CONSITENT CARB. BG CHANGED TO AC & HS. TELE = AFIB, BBB, PVC @ 55. CLIENT AMBULATED IN ROOM. BG = 107, 113, AND 160. BED IN LOW SETTING. CALL LIGHT WITHIN REACH.
[2024-07-28] MEDS ORDERED: OYSTER SHELL C500 MG PO (17:26)
[2024-07-28] MEDS ORDERED: ASPI325 PO (17:26)
[2024-07-28] MEDS ORDERED: ASCO500 PO (17:27)
[2024-07-28] MEDS ORDERED: Artificial Tear15 ML BOTHEYES (17:28)
[2024-07-28] MEDS ORDERED: FERSU300 PO (17:28)
[2024-07-28] MEDS ORDERED: FOLI1 PO (17:28)
[2024-07-28] MEDS ORDERED: Vitamin D1000 UNI1 PO (17:28)
[2024-07-28 19:47] VITALS: BP 115/67
[2024-07-29 00:05] VITALS: BP 145/85
[2024-07-29 04:09] VITALS: BP 125/65
--- NOTE | 2024-07-29 04:29 | NUR ---
SHIFT SUMMARY: PT AOX4 IND WITH URINAL IN THE ROOM, CALLS APPROPRIATELY AND IS ABLE TO MAKE NEEDS KNOWN. [place]. ANXIOUS ABOUT BEING ABLE TO GO HOME DURING THE DAY. STATES TO BE FEELING BETTER. DENIES ANY CP, OR SOB. TOLERATING MEDICATIONS WELL. NO ACUTE EVENTS OVERNIGHT. PT IN BED RESTING, BED IN LOWEST POSITION, CALL LIGHT IN REACH. CONTINUING CARE.
[2024-07-29 07:12] VITALS: BP 140/71
[2024-07-29] MEDS ORDERED: Polyethylene Glycol 3350 17 gm PO SCH (09:00)
[2024-07-29 09:22] LABS: Bun/Creatinine Ratio 43.4 (12.0-20.0); Calcium, Blood 9.6 mg/dL (8.5-10.1); Creatinine, Blood 0.83 mg/dL (0.60-1.20); Potassium, Blood 4.2 mmol/L (3.5-5.5)
[2024-07-29 11:13] VITALS: BP 124/90
--- NOTE | 2024-07-29 13:38 | NUR ---
DISCHARGE NOTE PT D/C HOME AT 1315. PT PROVIDED W/ VERBAL AND WRITTEN INSTRUCTIONS AND REPORTED UNDERSTANDING. PT A&OX4, VSS, AMB IND, TOLERATING PO, VOIDING, AND DENIED PAIN. BELONGINGS WERE RETURNED AND PT ESCOURTED OUT VIA W/C BY RUTHY GEORGE.
== END 2024-07-29 13:33 | disposition home or self-care (01) ==
LOC: ER 19:42 → MEDS 19:43 → SURS 22:38 → MEDS 22:38 → ER 22:38 → SURS 23:45 → MEDS 23:45
PROVIDERS: Emergency Medicine; Internal Medicine; Surgery; ADMIT Student in an Organized Health Care Education/Training Program
PROC: 0DBN8ZX Excision of Sigmoid Colon, Via Natural or Artificial Opening Endoscopic, Diagnostic (ICD-10-PCS; 2024-07-28)
PROC: 0DBP8ZX Excision of Rectum, Via Natural or Artificial Opening Endoscopic, Diagnostic (ICD-10-PCS; principal; 2024-07-28 14:00)
DX: K55.21 Angiodysplasia of colon with hemorrhage (principal); K52.0 Gastroenteritis and colitis due to radiation; J44.9 Chronic obstructive pulmonary disease, unspecified; I10 Essential (primary) hypertension; I48.0 Paroxysmal atrial fibrillation; K62.7 Radiation proctitis; E66.9 Obesity, unspecified; E11.9 Type 2 diabetes mellitus without complications; Z79.811 Long term (current) use of aromatase inhibitors; Z85.038 Personal history of other malignant neoplasm of large intestine; Z79.84 Long term (current) use of oral hypoglycemic drugs; Z79.51 Long term (current) use of inhaled steroids; Z79.899 Other long term (current) drug therapy; Z90.89 Acquired absence of other organs; Z98.890 Other specified postprocedural states; Z87.19 Personal history of other diseases of the digestive system; Z87.891 Personal history of nicotine dependence; Z68.30 Body mass index [BMI] 30.0-30.9, adult; Z92.3 Personal history of irradiation
CPT/HCPCS: 36415; 74177; 80048; 80053; 82947; 83735; 85014; 85018; 85025; 86850; 86900; 86901; 88305; 93005; 93010; 99285-25; A9270; G0378; J2371; J2704; J7120; Q9967

== ENCOUNTER 2024-10-11 16:43 | Emergency (ER) | payer OTHER ==
[~2024-10-11] VITALS: Ht 180.3 cm; Wt 98.4 kg
[~2024-10-11 16:43] MED LIST changes: +ASCO500 PO; +ASPI325 PO; +Artificial Tear15 ML BOTHEYES; +FERSU300 PO; +FOLI1 PO; +ORGOVYX120 MG PO; +OYSTER SHELL C500 MG PO; +Vitamin D1000 UNI1 PO
[2024-10-11 16:47] VITALS: BP 136/92
[2024-10-11] MEDS ORDERED: NS 500 ML IV SCH (18:00)
[2024-10-11 18:12] LABS: BASOPHILS ABSOLUTE AUTO 0.02 K/mm3 (0.00-0.23); BASOPHILS PERCENT AUTO 0 % (0-2); EOSINOPHILS ABSOLUTE AUTO 0.09 K/mm3 (0.00-0.68); EOSINOPHILS PERCENT AUTO 2 % (0-6); Hematocrit 31.4 % (37.0-53.0); Hemoglobin 10.3 g/dL (13.5-17.5); IMMATURE GRAN ABSOLUTE AUTO 0.02 K/mm3 (0.00-0.10); IMMATURE GRAN PERCENT AUTO 0 % (0-1); LYMPHOCYTES ABSOLUTE AUTO 0.86 K/mm3 (0.84-5.20); LYMPHOCYTES PERCENT AUTO 14 % (21-46); MONOCYTES ABSOLUTE AUTO 0.42 K/mm3 (0.16-1.47); MONOCYTES PERCENT AUTO 7 % (4-13); Mean Corpuscular HGB Conc 32.8 g/dL (31.5-36.5); Mean Corpuscular Volume 94 fL (80-100); NEUTROPHILS ABSOLUTE AUTO 4.57 K/mm3 (1.96-9.15); NEUTROPHILS PERCENT AUTO 77 % (41-73); NRBC ABSOLUTE 0.00 K/mm3 (0.00-0.02); NRBC Auto 0.0 /100 WBC (0.0-0.2); Platelet Count 129 K/mm3 (150-400); RDW Coefficient Variation 14.0 % (11.7-14.2); RDW Standard Deviation 47.6 fL (35.1-46.3)
[2024-10-11 18:21] LABS: Alanine Aminotransfer (ALT/SGP 16.0 U/L (12-78); Albumin, Blood 3.8 g/dL (3.4-5.0); Albumin/Globulin Ratio 1.2 (0.8-1.8); Anion Gap 9.0 mmol/L (3-11); Aspartate Aminotrans (AST/SGOT 14.0 U/L (12-37); Bilirubin, Total 0.6 mg/dL (0.1-1.0); Blood Urea Nitrogen 40.0 mg/dL (8-24); CO2, Blood 24.0 mmol/L (21-32); Calcium, Blood 9.2 mg/dL (8.5-10.1); Chloride, Blood 109.0 mmol/L (98-108); Creatinine, Blood 0.97 mg/dL (0.60-1.20); Globulin, Blood 3.1 g/dL (2.2-4.0); Glucose, Blood 108.0 mg/dL (70-99); Magnesium, Blood 2.0 mg/dL (1.6-2.4); Potassium, Blood 3.9 mmol/L (3.5-5.5); Sodium, Blood 138.0 mmol/L (136-145); Total Protein, Blood 6.9 g/dL (6.4-8.2)
[2024-10-11] MEDS ORDERED: Lactulose 200 GM/300 ML Enema 300ML BTL PR ONE (19:20)
[2024-10-11] MEDS ORDERED: CORTISONE60 GM TOP (20:25)
== END 2024-10-11 21:15 | disposition home or self-care (01) ==
LOC: ER 16:43
PROVIDERS: Student in an Organized Health Care Education/Training Program
DX: K59.00 Constipation, unspecified (principal); L30.8 Other specified dermatitis; E11.9 Type 2 diabetes mellitus without complications; I10 Essential (primary) hypertension; J44.9 Chronic obstructive pulmonary disease, unspecified; I48.91 Unspecified atrial fibrillation; Z87.891 Personal history of nicotine dependence; Z90.49 Acquired absence of other specified parts of digestive tract; Z79.82 Long term (current) use of aspirin; Z79.899 Other long term (current) drug therapy
CPT/HCPCS: 74177; 80053; 83735; 85025; 99284-25; A9270; J7030; Q9967

== ENCOUNTER 2024-11-30 04:43 | Inpatient (IN) | payer OTHER ==
[~2024-11-30] VITALS: Ht 180.3 cm; Wt 91.6 kg
[~2024-11-30 04:43] MED LIST changes: +CORTISONE60 GM TOP
[2024-11-30] MEDS ORDERED: NS 1,000 ML IV ONE (05:14)
[2024-11-30] MEDS ORDERED: NS 1,000 ML IV SCH (05:25)
[2024-11-30 05:26] LABS: BASOPHILS ABSOLUTE AUTO 0.02 K/mm3 (0.00-0.23); BASOPHILS PERCENT AUTO 0 % (0-2); EOSINOPHILS ABSOLUTE AUTO 0.03 K/mm3 (0.00-0.68); EOSINOPHILS PERCENT AUTO 0 % (0-6); Hematocrit 33.4 % (37.0-53.0); Hemoglobin 11.0 g/dL (13.5-17.5); IMMATURE GRAN ABSOLUTE AUTO 0.04 K/mm3 (0.00-0.10); IMMATURE GRAN PERCENT AUTO 0 % (0-1); LYMPHOCYTES ABSOLUTE AUTO 1.25 K/mm3 (0.84-5.20); LYMPHOCYTES PERCENT AUTO 10 % (21-46); MONOCYTES ABSOLUTE AUTO 0.82 K/mm3 (0.16-1.47); MONOCYTES PERCENT AUTO 6 % (4-13); Mean Corpuscular HGB Conc 32.9 g/dL (31.5-36.5); Mean Corpuscular Volume 92 fL (80-100); NEUTROPHILS ABSOLUTE AUTO 10.56 K/mm3 (1.96-9.15); NEUTROPHILS PERCENT AUTO 83 % (41-73); NRBC ABSOLUTE 0.00 K/mm3 (0.00-0.02); NRBC Auto 0.0 /100 WBC (0.0-0.2); Platelet Count 199 K/mm3 (150-400); RDW Coefficient Variation 14.0 % (11.7-14.2); RDW Standard Deviation 47.0 fL (35.1-46.3)
[2024-11-30 05:47] LABS: Alanine Aminotransfer (ALT/SGP 13 U/L (12-78); Albumin, Blood 3.5 g/dL (3.4-5.0); Albumin/Globulin Ratio 1.0 (0.8-1.8); Anion Gap 17 mmol/L (3-11); Aspartate Aminotrans (AST/SGOT 15 U/L (12-37); Bilirubin, Total 0.8 mg/dL (0.1-1.0); Blood Urea Nitrogen 56 mg/dL (8-24); CO2, Blood 18 mmol/L (21-32); Calcium, Blood 9.0 mg/dL (8.5-10.1); Chloride, Blood 105 mmol/L (98-108); Creatinine, Blood 1.35 mg/dL (0.60-1.20); Globulin, Blood 3.5 g/dL (2.2-4.0); Glucose, Blood 189 mg/dL (70-99); Magnesium, Blood 2.2 mg/dL (1.6-2.4); Potassium, Blood 4.1 mmol/L (3.5-5.5); Sodium, Blood 136 mmol/L (136-145); Total Protein, Blood 7.0 g/dL (6.4-8.2)
[2024-11-30] MEDS ORDERED: Ondansetron HCl 2 MG / ML 2ML Vial IV PRN (06:15)
[2024-11-30 09:01] VITALS: BP 110/77
[2024-11-30 09:06] LABS: Source, Urine Clean Catch
[2024-11-30 09:10] LABS: Bilirubin, Urine Neg (Neg); Color, Urine Yellow (P-Yellow); Glucose Qualitative, Urine Neg (Neg); Ketones, Urine 1+ (Neg); Leukocyte Esterase, Urine Neg (Neg); Protein, Urine 2+ (Neg); Specific Gravity, Urine 1.020 (1.003-1.022); Urobilinogen, Urine NORM (Normal)
[2024-11-30 09:22] LABS: Red Blood Cells, Urine Not Seen /hpf (0-2); White Blood Cells, Urine Not Seen /hpf (0-5)
[2024-11-30 11:05] LABS: Influenza A, PCR NEGATIVE (NEGATIVE); Influenza B, PCR NEGATIVE (NEGATIVE); Resp Syncytial Virus, PCR NEGATIVE (NEGATIVE); SARS-Cov-2 (COVID-19) PCR, MMC NEGATIVE (NEGATIVE)
[2024-11-30 12:26] VITALS: BP 112/56
[2024-11-30 15:53] VITALS: BP 112/68
[2024-11-30 15:54] LABS: Campylobacter Sp Not Detected (NOT DETECT); E. Coli O157 Not Detected (NOT DETECT); Enteroaggregative E. coli-EAEC Not Detected (NOT DETECT); Enteropathogenic E. coli-EPEC Not Detected (NOT DETECT); Enterotoxigenic E. coli-ETEC Not Detected (NOT DETECT); Salmonella Sp Not Detected (NOT DETECT); Shiga Toxin-prod E. coli-STEC Not Detected (NOT DETECT); Shigella/Enteroin E. coli-EIEC Not Detected (NOT DETECT); Vibrio Sp Not Detected (NOT DETECT)
[2024-11-30] MEDS ORDERED: HYDROcodone 5-APAP 325 TAB PO PRN (17:00)
--- NOTE | 2024-11-30 18:08 | NUR ---
SHIFT SUMMARY; ED ADMIT. TRANSFERS SELF FROM GURNEY TO BED WITH STAND BY ASSIST. A/A/OX4, ABLE TO USE CALL LIGHT AND MAKE NEEDS KNOWN. AMBULATES TO RESTROOM WITH SBA FOR LOOSE BM DURING SHIFT. PT REPORTS THIS HAS BEEN GOING ON FOR WEEKS. VSS, HR 80'S AFIB. LR INFUSING AT 75ML/HR. PLEASANT AND COOPERATIVE WITH CARE, WILL CONTINUE TO MONITOR AND TREAT UNTIL REPORT GIVEN TO NOC SHIFT RN.
[2024-11-30 20:03] VITALS: BP 113/78
[2024-11-30 23:56] VITALS: BP 103/67
[2024-12-01 03:28] LABS: BASOPHILS ABSOLUTE AUTO 0.01 K/mm3 (0.00-0.23); BASOPHILS PERCENT AUTO 0 % (0-2); EOSINOPHILS ABSOLUTE AUTO 0.10 K/mm3 (0.00-0.68); EOSINOPHILS PERCENT AUTO 1 % (0-6); Hematocrit 28.6 % (37.0-53.0); Hemoglobin 9.4 g/dL (13.5-17.5); IMMATURE GRAN ABSOLUTE AUTO 0.05 K/mm3 (0.00-0.10); IMMATURE GRAN PERCENT AUTO 1 % (0-1); LYMPHOCYTES ABSOLUTE AUTO 0.82 K/mm3 (0.84-5.20); LYMPHOCYTES PERCENT AUTO 8 % (21-46); MONOCYTES ABSOLUTE AUTO 0.69 K/mm3 (0.16-1.47); MONOCYTES PERCENT AUTO 7 % (4-13); Mean Corpuscular HGB Conc 32.9 g/dL (31.5-36.5); Mean Corpuscular Volume 93 fL (80-100); NEUTROPHILS ABSOLUTE AUTO 8.15 K/mm3 (1.96-9.15); NEUTROPHILS PERCENT AUTO 83 % (41-73); NRBC ABSOLUTE 0.00 K/mm3 (0.00-0.02); NRBC Auto 0.0 /100 WBC (0.0-0.2); Platelet Count 152 K/mm3 (150-400); RDW Coefficient Variation 14.0 % (11.7-14.2); RDW Standard Deviation 47.7 fL (35.1-46.3)
[2024-12-01 04:00] VITALS: BP 112/73
[2024-12-01 04:07] LABS: Alanine Aminotransfer (ALT/SGP 11 U/L (12-78); Albumin, Blood 2.8 g/dL (3.4-5.0); Albumin/Globulin Ratio 0.9 (0.8-1.8); Anion Gap 11 mmol/L (3-11); Aspartate Aminotrans (AST/SGOT 13 U/L (12-37); Bilirubin, Total 0.6 mg/dL (0.1-1.0); Blood Urea Nitrogen 53 mg/dL (8-24); CO2, Blood 23 mmol/L (21-32); Calcium, Blood 8.4 mg/dL (8.5-10.1); Chloride, Blood 109 mmol/L (98-108); Creatinine, Blood 1.08 mg/dL (0.60-1.20); Globulin, Blood 3.0 g/dL (2.2-4.0); Glucose, Blood 126 mg/dL (70-99); Magnesium, Blood 2.0 mg/dL (1.6-2.4); Potassium, Blood 3.9 mmol/L (3.5-5.5); Sodium, Blood 139 mmol/L (136-145); Total Protein, Blood 5.8 g/dL (6.4-8.2)
--- NOTE | 2024-12-01 04:35 | NUR ---
SHIFT SUMMARY: PATIENT IS A&OX4. TELE SHOWS AFIB WITH FREQUENT PVC'S WITH HR @ 70'S BPM. PATIENT REPORTS A 7-8/10 PAIN FROM HIS RECTUM AND IS "SEMI-MANAGED" WITH THE NORCO PO PER MAR. PATIENT REFUSES THE PO TYELNOL STATING "IT DOESN'T DO ANYTHING". PATIENT HAS HAD MULTIPLE LOOSE BM'S THAT ARE BROWN/GREEN/GRAYISH COLORED - HAS BEEN INCONTINENT OF THE BM'S MAJORITY OF THE SHIFT. PATIENT WAS EDUCATED ON USE OF THE BSC AND HE COULD HAVE HIS BM'S QUICKLY AND ALSO NOT HAVE HIS STOOL ON HIS SKIN WHICH CAN CAUSE BREAKDOWN. PATIENT REFUSED TO USE THE BSC STATING "THAT WON'T WORK" AND WANTED HIS ATTENDS CHANGED IN BED. TRIED TO ALSO ENCOURAGE PATIENT INDEPENDENCE BY CALLING FOR HELP TO GO TO THE [facility] TO GET CLEANED, BUT PATIENT ALSO REFUSED THAT WELL. 2P ASSIST WHEN CHANGING ATTENDS/LINENS. 1P ASSIST WHEN AMBULATING IN THE ROOM. DR. SOTELO WAS CALLED ASKING IF PATIENT COULD HAVE IMMODIUM DUE TO PATIENTS FREQUENT LOOSE STOOLS AND NEGATIVE STOOL PANEL. MD PLACED IMMODIUM PO Q4H PRN. PATIENTS X1 DOSE OF 1L FLUIDS GIVEN PER MAR. PATIENT IS TOLERATING PO INTAKE AND IS VOIDING VIA CANESTER AT BEDSIDE PER PATIENT REQUEST INSTEAD OF URINAL. PATIENT CALLS APPROPRIATELY AND IS ABLE TO MAKE NEEDS KNOWN. PATIENT IS CURRENTLY LAYING IN BED WITH CALL LIGHT IN REACH.
[2024-12-01 08:40] VITALS: BP 107/67
[2024-12-01] MEDS ORDERED: Banana Flakes/Tos 1 EA Powder Pack PO SCH (09:00)
[2024-12-01 11:29] VITALS: BP 100/58
--- NOTE | 2024-12-01 11:41 | NUR ---
NO ACUTE CHANGES AT THIS TIME. VITALS STABLE, REMAINS ON RA AND SATING ABOVE 92% ON CONTINOUS PULSE OX. BISACODYL SUPP ADMINISTERED - BM x4 SO FAR THIS SHIFT, MORE FORMED MOST RECENT BM WITH MIXED DIARRHEA. BARRIER CREAM FOR BREAKDWON ON COCCYX. NYSTATIN CREAM ORDERED FOR YEAST TO BELLY BUTTON PER BASIC WOUND CARE PROTOCOL. PT CURRENTLY RESTING IN BED EATING LUNCH WITH BED IN LOWEST POSITION AND CALL LIGHT IN REACH.
--- NOTE | 2024-12-01 13:04 | NUR ---
TELE MONITOR REMOVED PER ORDERS. PLAN FOR TRANSFER TO MEDICAL FLOOR - AWAITING ROOM ASSIGNMENT.
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
[2024-12-01 15:21] VITALS: BP 113/64
--- NOTE | 2024-12-01 16:04 | NUR ---
ASSUMPTION OF CARE THIS RN ASSUMED CARE OF PATIENT AT 1500. PATIENT ALERT AND ORIENTED, ABLE TO FOLLOW COMMANDS AND MAKE NEEDS KNOWN. VSS, SPO2 >90% ON RA. PATIENT DENIES CHEST PAIN OR PRESSURE. PATIENT SITTING UP IN BED, BED IN LOWEST POSITION, CALL LIGHT WITHIN REACH.
--- NOTE | 2024-12-01 16:27 | NUR ---
Upon recieving a referral for spiritual care, i visited the patient. 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 I reinforced helpful attitudes and practices, normalized his feelings and fears and provided therapeutic listening and and a calming presence. The patient responded well and showed signs of greater peace.
[2024-12-01 18:13] VITALS: BP 113/68
--- NOTE | 2024-12-01 18:14 | NUR ---
TRANSFER FROM PCU ARRIVAL @ 1810 VSS, AOX4, SBA TO BATHROOM. ABLE TO MAKE NEEDS KNOWN. DENIES SOB, CHEST PAIN OR PRESSURE. CALL LIGHT IN REACH.
--- NOTE | 2024-12-01 18:20 | NUR ---
TRANSFER REPORT GIVEN TO [facility] FLOOR RN. PATIENT TRANSFERRED TO [facility] BED WITH ALL PERSONAL BELONGINGS. PATIENT EXHIBITING NO SIGNS OF DISTRESS.
--- NOTE | 2024-12-01 18:45 | NUR ---
SUMMARY NO EVENTS SINCE THIS RN TOOK OVER CARE, PATIENT ORIENTED TO ROOM. NOTED REDDNESS TO BELLY BUTTON AREA, ORDER FOR NYSTATIN CREAM FOR 2100. PATIENT STATES REDDNESS COMES AND GOES. VSS, CALL LIGHT IN REACH.
[2024-12-01 21:14] VITALS: BP 114/57
--- NOTE | 2024-12-02 04:25 | NUR ---
SHIFT SUMMARY: PT AOX4, SBA/ IND IN THE ROOM. CALLS APPROPRIATELY AND ABLE TO MAKE NEEDS KNOWN. INCONT OF STOOL. HAVING MULTIPLE SMEARS IN BRIEFS AND GETTING TO THE BATHROOM AND UNABLE TO HAVE BM. SKIN AROUND ANUS IS VERY EXCORIATED AND SOOD PER PT. REFUSED IMMODIUM AND BANANA FLAKES STATING, " THEY DONT WORK" DESPITE ATTEMPTED EDUCATION BY THIS RN. STOOLS HAVE BEEN TARRY, GRITTY, AND MCKAY. PT TOLERATING MEDICATIONS WELL, NO ACUTE OVERNIGHT EVENTS. PT IN BED RESTING, BED IN LOWEST POSITION, CALL LIGHT IN REACH. CONTINUING CARE.
[2024-12-02 05:36] VITALS: BP 127/60
[2024-12-02 07:29] VITALS: BP 118/70
[2024-12-02 14:59] VITALS: BP 105/59
--- NOTE | 2024-12-02 18:22 | NUR ---
End of shift summary: Patient is alert and oriented x4; pleasant and cooperative with care. Patient with continued loose stool today; has had some formed stool aft medication administration. Patient continues with pain to excoriated rectum and creams being applied after each BM. Patient denies CP or pressure, SOB, N/V today; does have pain and Upperglade given per EMAR with effect noted. All medications administered per EMAR. Patient utilizing call light appropriately; call light within reach and bed in lowest postion. Will continue to monitor until next shift nurse arrives and report is given.
[2024-12-02 20:37] VITALS: BP 113/62
[2024-12-03 01:38] VITALS: BP 119/70
--- NOTE | 2024-12-03 05:20 | NUR ---
SHIFT SUMMARY NOC PT A/O X 4. PLEASANT AND COOPERATIVE WITH CARE. VSS. NO ACUTE CHANGES TO REPORT. PT STILL HAVING LOOSE STOOLS AND BACK SIDE IS QUITE RED, CREAM APPLIED PER EMAR. PT HAS IVF INFUSING PER EMAR. PT CURRENTLY RESTING WITH BED IN LOWEST POSITION, AND CALL LIGHT WITHIN REACH.
[2024-12-03 07:44] VITALS: BP 117/60
[2024-12-03 15:29] VITALS: BP 111/62
--- NOTE | 2024-12-03 17:02 | NUR ---
SHIFT SUMMARY PT IS A/OX4. SBA TO BATHROOM WITH FWW. NO ACUTE CHANGES THROUGHOUT THIS SHIFT. X2 SMALL, SOFT BUT FORMED BM'S THIS SHIFT. FAMILY AT BEDSIDE THIS AFTERNOON. PLAN TO DC HOME TOMORROW. PT IS PLEASANT AND COOPERATIVE WITH CARE AND CALLS APPROPRIATELY USING THE CALL LIGHT.
[2024-12-03 20:06] VITALS: BP 116/63
[2024-12-04 03:57] VITALS: BP 106/56
--- NOTE | 2024-12-04 06:07 | NUR ---
Shift Summary No acute changes. Pt ind to the BR this shift, reports no significant BM. No c/o pain. Pt awake t/o most of the night. Pt is AOx4, [place], SBA/IND in the room.
[2024-12-04 07:32] VITALS: BP 119/79
[2024-12-04 15:25] VITALS: BP 135/63
--- NOTE | 2024-12-04 17:35 | NUR ---
SHIFT SUMMARY PT A&OX4, VSS, RA. FREQUENT SMALL LOOSE BM SOILING BRIEFS T/O SHIFT. PT IND TO BATHROOM. PT CONCERNED ABOUT DISCHARGE AND THE POSSIBILITY OF READMITTANCE IF PROBLEMS PERSIST, PT CHOSE TO STAY UNTIL TOMORROW. ONE TIME DOSE OF LACTULOSE GIVEN PER EMAR. ABLE TO MAKE NEEDS KNOWN, CALL LIGHT IN REACH.
[2024-12-04 19:45] VITALS: BP 121/68
[2024-12-05 04:01] VITALS: BP 113/59
--- NOTE | 2024-12-05 06:44 | NUR ---
SHIFT SUMMARY A/Ox4, VSS ON RA. PT REPORTS CONSTIPATION; PT FEELS THE URGE TO VOIO BUT ONLY SMEARS RESULT. PT INCREASED AMBULATION AND FLUID INTAKE THIS SHIFT. PT VERBALIZED LOOKING FORWARD TO BEING HOME BUT LACKS CONFIDENCE IN HANDLING ANY CONTINUED CONSTIPATION, EDUCATION PROVIDED.
[2024-12-05] MEDS ORDERED: Polyethylene Glycol 3350 17 gm PO PRN (07:35)
[2024-12-05 07:46] VITALS: BP 106/65
[2024-12-05] MEDS ORDERED: Docusate Sodium/Senna 1 Tab PO SCH (08:00)
[2024-12-05 15:13] VITALS: BP 120/66
--- NOTE | 2024-12-05 17:56 | NUR ---
SHIFT SUMMARY PATIENT HAD MD AMOUNT OF HARD STOOL ACCOMPANIED BY LIQUID STOOL, STATES HE FEELS SOME RELIEF AND LESS PRESSURE AFTER. ENEMA WAS GIVEN IN ADDITION TO PO MEDS. PATIENT ABLE TO AMBULATE AND WAS ENCOURAGED TO INCREASE MOBILITY THROUGHOUT SHIFT. ABLE TO MAKE NEEDS KNOWN. CARES ONGOING
[2024-12-05 19:38] VITALS: BP 125/72
[2024-12-06 04:16] VITALS: BP 126/59
[2024-12-06 05:54] LABS: Hematocrit 27.5 % (37.0-53.0); Hemoglobin 9.0 g/dL (13.5-17.5); Mean Corpuscular HGB Conc 32.7 g/dL (31.5-36.5); Mean Corpuscular Volume 93 fL (80-100); NRBC ABSOLUTE 0.00 K/mm3 (0.00-0.02); NRBC Auto 0.0 /100 WBC (0.0-0.2); Platelet Count 155 K/mm3 (150-400); RDW Coefficient Variation 14.4 % (11.7-14.2); RDW Standard Deviation 48.2 fL (35.1-46.3)
[2024-12-06 06:42] LABS: Albumin, Blood 3.0 g/dL (3.4-5.0); Anion Gap 9 mmol/L (3-11); Blood Urea Nitrogen 12 mg/dL (8-24); CO2, Blood 25 mmol/L (21-32); Calcium, Blood 8.5 mg/dL (8.5-10.1); Chloride, Blood 106 mmol/L (98-108); Creatinine, Blood 0.84 mg/dL (0.60-1.20); Glucose, Blood 97 mg/dL (70-99); Magnesium, Blood 2.1 mg/dL (1.6-2.4); Phosphorus, Blood 2.7 mg/dL (2.5-4.9); Potassium, Blood 4.2 mmol/L (3.5-5.5); Sodium, Blood 136 mmol/L (136-145); Thyroid Stimulating Hormone 3.550 uIU/mL (0.360-4.800)
--- NOTE | 2024-12-06 06:52 | NUR ---
SHIFT SUMMARY A/Ox4, VSS ON RA. PT REPORTS FEELING LESS CONSTIPATED; REPORTS CONTINUED PAIN AT RECTUM. SCANT BLOOD NOTED WITH PERICARE. NO ACUTE CHANGES OVERNIGHT.
[2024-12-06 08:00] VITALS: BP 123/67
[2024-12-06 15:20] VITALS: BP 138/65
--- NOTE | 2024-12-06 18:44 | NUR ---
PATIENT RECEIVED SUPREP 1/2 DOSE [address] CON[address] GLYNN. EXTRA LARGE LIQUID STOOL PASSED, PATIENT STATES IT'S NOT ENOUGH AND STATES HE IS MISERABLE. SEVERAL LIQUID STOOLS PASSED PRIOR TO SUPREP ADMIN.
[2024-12-06 20:02] VITALS: BP 121/62
[2024-12-07 04:55] VITALS: BP 109/56
--- NOTE | 2024-12-07 05:53 | NUR ---
SHIFT SUMMARY; PT A/OX4, INDEPENDENT WITH FWW TO THE RESTROOM. UPON GIVING MEDICATION PER EMAR, PT FREQUENTLY ASKED WHAT MED WAS FOR AND THEN STATES THAT HE DOES NOT WANT TO USE/TAKE MEDS. LUNG SOUNDS ASCULTATED WITH INSPIRATORY WHEEZE IN ALL LUNG RUIZ WITH CRACKLES IN THE LLL. PT HAVING LOOSE BMS THROUGHOUT THE NIGHT. PT INCONTINANT AND WEARING BRIEFS. PT IS CHANGING HIS BRIEFS INDEPENDENTLY AND CLEANING HIMSELF. PER LANDSCAPER, OFFERED TO HELP ASSIST WITH CLEANING, BUT PT DENYING HELP. BANANA FLAKES GIVEN PER EMAR IN APPLESAUCE AND ENCOURAGED TO EAT. PT ATE MOST OF APPLESAUSE, HOWEVER RELUNCTANT TO EAT IT. LOOSE STOOLS HAVE TURNED INTO MULTIPLE WATERY STOOLS DURING THE NIGHT. DUE TO FREQUENT WIPING, BRIGHT RED BLOOD IS APPEARING ON SOFT WIPES PROVIDED. DR. COOL PAGED AND INFORMED. ORDER PLACED FOR ABD XRAY TO SEE IF PT IS STILL IMPACTED W/ STOOL. VSS. CALL LIGHT W/IN REACH AND BED IN LOW POSITION.
[2024-12-07 07:14] VITALS: BP 117/57
[2024-12-07 14:44] VITALS: BP 141/84
--- NOTE | 2024-12-07 14:46 | NUR ---
Patient tells me about his frustrations with his symptoms and that he has not improved or know why he has his symptoms. We talk about the discovery process and the excellence of our medical team. He acknowledges the clinical expertise and that he will get through it all but that it is just not enjoyable at all. We explore the things he is looking forward to when he is well and the good things his family are doing for him and his house (low income housing according to the patient) while he is lodged in the hospital. Patient displayed evidence of an elevated mood. I will continue to remain available to the patient and family.
--- NOTE | 2024-12-07 17:57 | NUR ---
SHIFT SUMMARY PATIENT A&OX4. ABLE TO MAKE NEEDS KNOWN. FREQUENT LIQUID STOOLS HAVE SLOWED AND PATIENT DID TAKE IN STOOL BULKING SUPPLEMENT. AMBULATES IN THE ROOM WITH FWW. XRAY DONE TO CONFIRM PASSING OF IMPACTED STOOL. PLAN TO DISCHARGE TO HOME HEALHT. CURRENLTY UP IN BED HAVING DINNER. BED IN LOWEST POSITION. CALL LIGHT WITHIN REACH.
[2024-12-07 20:06] VITALS: BP 127/72
[2024-12-08 04:37] VITALS: BP 121/56
--- NOTE | 2024-12-08 05:32 | NUR ---
SHIFT SUMMARY; PT A/OX3, INDEPENDENT TO BATHROOM WITH FWW. PT INCONTINANT OF STOOL, WEARING BRIEF. PT IS INDEPENDENTLY CHANGING AND CLEANING BUTTOCK. PT MEDICATED PER EMAR AND CREAMS APPLIED TO NAVAL AND ANAL AREA. PT HAD ONE BM MOVEMENT, LOOSE BUT A FIRMER CONSISTENCY COMPARED TO THE NIGHT OF 12/07/24. R FA IV D/C DUE TO LEAKING AT THE SITE, REDNESS ABOVE THE IV INSERTION SITE, AND POOR PATENCY. ADVISED BY PRIOR SHIFT THAT DR. LYNN WILL CONSULT PT AND POSSIBLE DISCHARGE TO HOME W/ HOME HEALTH. VSS. CALL LIGHT W/IN REACH AND BED IN LOW POSITION.
[2024-12-08 07:31] VITALS: BP 116/55
[2024-12-08] MEDS ORDERED: BANATROL PLUS PO (11:45)
[2024-12-08] MEDS ORDERED: DOCUZEN 8.6-501 EACH PO (11:47)
[2024-12-08] MEDS ORDERED: NYSTATIN15 GM TOP (11:51)
[2024-12-08] MEDS ORDERED: MIRALAX17 GM PO (11:51)
--- NOTE | 2024-12-08 12:49 | NUR ---
1245- THIS RN CALLED JUAN AND INFORMED HER PT HAD LEFT A PILL BOTTLE IN HIS ROOM PRESCRIBED FROM UROLOGIST. MESSAGE LEFT ON PHONE.
--- NOTE | 2024-12-08 13:01 | NUR ---
DISCHARGE 1230 DISCHARGED HOME, PICKED UP BY SISTER, LEFT WITH ALL BELONGINGS. MEDICATIONS REVIEWED AND SENT TO PHARMACY. ADVISED TO F/U WITH PCP AT NEXT AVAILABLE APPT. LEFT IN STABLE CONDITION.
== END 2024-12-08 12:30 | disposition home health service (06) | DRG 309 ==
LOC: ER 04:43 → PCU 06:10 → MEDS 06:10 → PCU 09:42 → MEDS 12-01 18:02
PROVIDERS: Internal Medicine; Student in an Organized Health Care Education/Training Program; ADMIT Student in an Organized Health Care Education/Training Program
DX: I48.91 Unspecified atrial fibrillation (principal); E87.20 Acidosis, unspecified; K56.7 Ileus, unspecified; N17.9 Acute kidney failure, unspecified; J44.9 Chronic obstructive pulmonary disease, unspecified; E11.9 Type 2 diabetes mellitus without complications; I10 Essential (primary) hypertension; I95.9 Hypotension, unspecified; E86.0 Dehydration; R19.7 Diarrhea, unspecified; T47.6X5A Adverse effect of antidiarrheal drugs, initial encounter; Z85.46 Personal history of malignant neoplasm of prostate; Z85.118 Personal history of other malignant neoplasm of bronchus and lung; Z85.038 Personal history of other malignant neoplasm of large intestine; Z90.49 Acquired absence of other specified parts of digestive tract; Z79.82 Long term (current) use of aspirin; Z87.891 Personal history of nicotine dependence
CPT/HCPCS: 36415; 74019; 74177; 80053; 80069; 80162; 81001; 82010; 83605; 83735; 84443; 85025; 85027; 87507; 87637; 93005; 93010; 96360; 97110; 97116; 97162; 99285-25; A9270; J7030; J7120; Q9967

== ENCOUNTER 2024-12-26 22:09 | Emergency (ER) | payer OTHER ==
[~2024-12-26] VITALS: Ht 154.9 cm; Wt 90.7 kg
[~2024-12-26 22:09] MED LIST changes: +BANATROL PLUS PO; +DOCUZEN 8.6-501 EACH PO; +MIRALAX17 GM PO; +NYSTATIN15 GM TOP
[2024-12-26 23:27] VITALS: BP 131/86
[2024-12-26] MEDS ORDERED: DESITIN DAILY136 GM TOP (23:37)
== END 2024-12-26 23:35 | disposition home or self-care (01) ==
LOC: ER 22:09
DX: K62.89 Other specified diseases of anus and rectum (principal); K52.9 Noninfective gastroenteritis and colitis, unspecified; E11.9 Type 2 diabetes mellitus without complications; I48.91 Unspecified atrial fibrillation; J44.9 Chronic obstructive pulmonary disease, unspecified; Z87.891 Personal history of nicotine dependence; Z79.82 Long term (current) use of aspirin; Z79.899 Other long term (current) drug therapy
CPT/HCPCS: 99283

== ENCOUNTER 2024-12-28 10:03 | Emergency (ER) | payer OTHER ==
[~2024-12-28] VITALS: Ht 167.6 cm; Wt 99.8 kg
[~2024-12-28 10:03] MED LIST changes: +DESITIN DAILY136 GM TOP
[2024-12-28] MEDS ORDERED: NS 1,000 ML IV SCH (10:20)
[2024-12-28 10:52] LABS: BASOPHILS ABSOLUTE AUTO 0.01 K/mm3 (0.00-0.23); BASOPHILS PERCENT AUTO 0 % (0-2); EOSINOPHILS ABSOLUTE AUTO 0.00 K/mm3 (0.00-0.68); EOSINOPHILS PERCENT AUTO 0 % (0-6); Hematocrit 32.5 % (37.0-53.0); Hemoglobin 10.5 g/dL (13.5-17.5); IMMATURE GRAN ABSOLUTE AUTO 0.04 K/mm3 (0.00-0.10); IMMATURE GRAN PERCENT AUTO 0 % (0-1); LYMPHOCYTES ABSOLUTE AUTO 0.52 K/mm3 (0.84-5.20); LYMPHOCYTES PERCENT AUTO 6 % (21-46); MONOCYTES ABSOLUTE AUTO 0.38 K/mm3 (0.16-1.47); MONOCYTES PERCENT AUTO 4 % (4-13); Mean Corpuscular HGB Conc 32.3 g/dL (31.5-36.5); Mean Corpuscular Volume 92 fL (80-100); NEUTROPHILS ABSOLUTE AUTO 7.95 K/mm3 (1.96-9.15); NEUTROPHILS PERCENT AUTO 89 % (41-73); NRBC ABSOLUTE 0.00 K/mm3 (0.00-0.02); NRBC Auto 0.0 /100 WBC (0.0-0.2); Platelet Count 141 K/mm3 (150-400); RDW Coefficient Variation 14.6 % (11.7-14.2); RDW Standard Deviation 49.1 fL (35.1-46.3)
[2024-12-28 11:12] LABS: Alanine Aminotransfer (ALT/SGP 13.0 U/L (12-78); Albumin, Blood 3.1 g/dL (3.4-5.0); Albumin/Globulin Ratio 0.8 (0.8-1.8); Anion Gap 12.0 mmol/L (3-11); Aspartate Aminotrans (AST/SGOT 10.0 U/L (12-37); Bilirubin, Total 0.8 mg/dL (0.1-1.0); Blood Urea Nitrogen 50.0 mg/dL (8-24); CO2, Blood 28.0 mmol/L (21-32); Calcium, Blood 9.8 mg/dL (8.5-10.1); Chloride, Blood 103.0 mmol/L (98-108); Creatinine, Blood 1.02 mg/dL (0.60-1.20); Globulin, Blood 3.8 g/dL (2.2-4.0); Glucose, Blood 150.0 mg/dL (70-99); Potassium, Blood 3.9 mmol/L (3.5-5.5); Sodium, Blood 139.0 mmol/L (136-145); Total Protein, Blood 6.9 g/dL (6.4-8.2)
[2024-12-28 14:32] VITALS: BP 133/77
[2024-12-29] MEDS ORDERED: COMBIVENT RESPIM4 G1 (13:08)
[2024-12-29] MEDS ORDERED: HYDCHL25 PO (13:09)
== END 2024-12-28 14:13 | disposition home or self-care (01) ==
LOC: ER 10:03
PROVIDERS: Emergency Medicine
DX: E86.0 Dehydration (principal); I48.91 Unspecified atrial fibrillation; R68.89 Other general symptoms and signs; E11.9 Type 2 diabetes mellitus without complications; I10 Essential (primary) hypertension; J44.9 Chronic obstructive pulmonary disease, unspecified; Z87.891 Personal history of nicotine dependence; Z79.82 Long term (current) use of aspirin; Z79.899 Other long term (current) drug therapy; K62.89 Other specified diseases of anus and rectum; K52.9 Noninfective gastroenteritis and colitis, unspecified
CPT/HCPCS: 80053; 85025; 86850; 86900; 86901; 96360; 99283; 99284-25; J7030

== ENCOUNTER 2024-12-28 20:53 | Inpatient (IN) | payer OTHER ==
[~2024-12-28] VITALS: Ht 180.3 cm; Wt 78.4 kg
[2024-12-28 21:34] LABS: BASOPHILS ABSOLUTE AUTO 0.01 K/mm3 (0.00-0.23); BASOPHILS PERCENT AUTO 0 % (0-2); EOSINOPHILS ABSOLUTE AUTO 0.00 K/mm3 (0.00-0.68); EOSINOPHILS PERCENT AUTO 0 % (0-6); Hematocrit 30.9 % (37.0-53.0); Hemoglobin 10.2 g/dL (13.5-17.5); IMMATURE GRAN ABSOLUTE AUTO 0.05 K/mm3 (0.00-0.10); IMMATURE GRAN PERCENT AUTO 0 % (0-1); LYMPHOCYTES ABSOLUTE AUTO 0.77 K/mm3 (0.84-5.20); LYMPHOCYTES PERCENT AUTO 6 % (21-46); MONOCYTES ABSOLUTE AUTO 0.60 K/mm3 (0.16-1.47); MONOCYTES PERCENT AUTO 5 % (4-13); Mean Corpuscular HGB Conc 33.0 g/dL (31.5-36.5); Mean Corpuscular Volume 93 fL (80-100); NEUTROPHILS ABSOLUTE AUTO 11.88 K/mm3 (1.96-9.15); NEUTROPHILS PERCENT AUTO 89 % (41-73); NRBC ABSOLUTE 0.00 K/mm3 (0.00-0.02); NRBC Auto 0.0 /100 WBC (0.0-0.2); Platelet Count 160 K/mm3 (150-400); RDW Coefficient Variation 14.8 % (11.7-14.2); RDW Standard Deviation 50.4 fL (35.1-46.3)
[2024-12-28 21:58] LABS: Alanine Aminotransfer (ALT/SGP 14 U/L (12-78); Albumin, Blood 3.0 g/dL (3.4-5.0); Albumin/Globulin Ratio 0.8 (0.8-1.8); Anion Gap 12 mmol/L (3-11); Aspartate Aminotrans (AST/SGOT 14 U/L (12-37); Bilirubin, Total 1.0 mg/dL (0.1-1.0); Blood Urea Nitrogen 46 mg/dL (8-24); CO2, Blood 27 mmol/L (21-32); Calcium, Blood 9.5 mg/dL (8.5-10.1); Chloride, Blood 103 mmol/L (98-108); Creatinine, Blood 0.91 mg/dL (0.60-1.20); Globulin, Blood 3.7 g/dL (2.2-4.0); Glucose, Blood 135 mg/dL (70-99); Magnesium, Blood 2.2 mg/dL (1.6-2.4); Potassium, Blood 3.7 mmol/L (3.5-5.5); Sodium, Blood 138 mmol/L (136-145); Total Protein, Blood 6.7 g/dL (6.4-8.2)
[2024-12-29] MEDS ORDERED: Magnesium Hydroxide Conc 10 ML UDC PO PRN (03:20)
[2024-12-29] MEDS ORDERED: Metoprolol Tartrate 1 MG/ML 5 ML VIAL IV PRN (03:25)
[2024-12-29] MEDS ORDERED: FLU VACC TS2025(65UP)/MF59C/PF 45 MCG/0.5 ML SYRINGE IM SCH (03:25)
[2024-12-29 03:30] LABS: Phosphorus, Blood 2.5 mg/dL (2.5-4.9)
[2024-12-29 06:46] LABS: Hematocrit 29.1 % (37.0-53.0); Hemoglobin 9.3 g/dL (13.5-17.5); IMMATURE RETIC FRACTION 13.00 % (2.3-16.0); Mean Corpuscular HGB Conc 32.0 g/dL (31.5-36.5); Mean Corpuscular Volume 94 fL (80-100); NRBC ABSOLUTE 0.00 K/mm3 (0.00-0.02); NRBC Auto 0.0 /100 WBC (0.0-0.2); Platelet Count 131 K/mm3 (150-400); RDW Coefficient Variation 14.7 % (11.7-14.2); RDW Standard Deviation 50.9 fL (35.1-46.3); RETIC HGB EQUIVALENT 34.50 pg (28.20-36.60); RETICULOCYTE ABSOLUTE 0.0546 M/mm3 (0.0200-0.1100); RETICULOCYTE COUNT PERCENT 1.76 % (0.50-2.50)
[2024-12-29 07:20] LABS: Source, Urine Clean Catch
[2024-12-29 07:26] LABS: Bilirubin, Urine Neg (Neg); Color, Urine Yellow (P-Yellow); Glucose Qualitative, Urine Neg (Neg); Ketones, Urine 2+ (Neg); Leukocyte Esterase, Urine Neg (Neg); Protein, Urine 2+ (Neg); Specific Gravity, Urine 1.025 (1.003-1.022); Urobilinogen, Urine NORM (Normal)
[2024-12-29 07:27] LABS: Ferritin, Serum 161.0 ng/mL (26-388); Total Iron Binding Capacity 177.0 ug/dL (250-450)
[2024-12-29] MEDS ORDERED: Insulin Human Lispro 100 Units/ML 3ML Syringe SC SCH (07:30)
[2024-12-29 07:37] LABS: Red Blood Cells, Urine 0-2 /hpf (0-2); White Blood Cells, Urine 0-2 /hpf (0-5)
[2024-12-29 07:53] LABS: Anion Gap 10.0 mmol/L (3-11); Blood Urea Nitrogen 36.0 mg/dL (8-24); CO2, Blood 28.0 mmol/L (21-32); Calcium, Blood 9.0 mg/dL (8.5-10.1); Chloride, Blood 107.0 mmol/L (98-108); Creatinine, Blood 0.74 mg/dL (0.60-1.20); Glucose, Blood 118.0 mg/dL (70-99); Potassium, Blood 3.9 mmol/L (3.5-5.5); Sodium, Blood 141.0 mmol/L (136-145)
[2024-12-29 08:57] LABS: Anion Gap 10.0 mmol/L (3-11); Blood Urea Nitrogen 38.0 mg/dL (8-24); CO2, Blood 27.0 mmol/L (21-32); Calcium, Blood 9.2 mg/dL (8.5-10.1); Chloride, Blood 107.0 mmol/L (98-108); Creatinine, Blood 0.75 mg/dL (0.60-1.20); Glucose, Blood 117.0 mg/dL (70-99); Potassium, Blood 4.1 mmol/L (3.5-5.5); Sodium, Blood 140.0 mmol/L (136-145)
[2024-12-29] MEDS ORDERED: Albuterol 2.5 MG/3 ML VIAL INH PRN (11:45)
[2024-12-29] MEDS ORDERED: COMBIVENT RESPIM4 G1 (13:08)
[2024-12-29] MEDS ORDERED: HYDCHL25 PO (13:09)
[2024-12-29 14:35] LABS: Hematocrit 27.2 % (37.0-53.0); Hemoglobin 8.9 g/dL (13.5-17.5)
[2024-12-29 14:51] VITALS: BP 119/80
[2024-12-29 15:30] LABS: Stool Occult Bld Immuno 1 Negative (NEGATIVE)
[2024-12-29 16:50] VITALS: BP 129/75
--- NOTE | 2024-12-29 18:10 | NUR ---
PT IS A&Ox4 AND ABLE TO MAKE NEEDS KNOWN. HE IS ON 2LNC W/O2 SATS > 92%. HE IS A x1 ASSIST FOR TURNS IN BED AND x1 W/WALKER FOR AMBULATION. NO NEEDS OR CONCERNS NOTED @ THIS TIME. PT ARRIVED TO UNIT @ 1425 FROM ER VIA GURNEY. WOUNDS TO GLUTEAL CLEFT AND SKIN TEAR TO RFA. BED IN LOW POSITION, CALL LIGHT AND PERSONAL BELONGINGS IN REACH.
[2024-12-29 20:32] VITALS: BP 126/63
[2024-12-30 00:16] VITALS: BP 125/64
[2024-12-30 04:04] LABS: BASOPHILS ABSOLUTE AUTO 0.00 K/mm3 (0.00-0.23); BASOPHILS PERCENT AUTO 0 % (0-2); EOSINOPHILS ABSOLUTE AUTO 0.02 K/mm3 (0.00-0.68); EOSINOPHILS PERCENT AUTO 0 % (0-6); Hematocrit 28.0 % (37.0-53.0); Hemoglobin 8.8 g/dL (13.5-17.5); IMMATURE GRAN ABSOLUTE AUTO 0.03 K/mm3 (0.00-0.10); IMMATURE GRAN PERCENT AUTO 0 % (0-1); LYMPHOCYTES ABSOLUTE AUTO 0.86 K/mm3 (0.84-5.20); LYMPHOCYTES PERCENT AUTO 12 % (21-46); MONOCYTES ABSOLUTE AUTO 0.35 K/mm3 (0.16-1.47); MONOCYTES PERCENT AUTO 5 % (4-13); Mean Corpuscular HGB Conc 31.4 g/dL (31.5-36.5); Mean Corpuscular Volume 94 fL (80-100); NEUTROPHILS ABSOLUTE AUTO 5.96 K/mm3 (1.96-9.15); NEUTROPHILS PERCENT AUTO 83 % (41-73); NRBC ABSOLUTE 0.00 K/mm3 (0.00-0.02); NRBC Auto 0.0 /100 WBC (0.0-0.2); Platelet Count 118 K/mm3 (150-400); RDW Coefficient Variation 14.8 % (11.7-14.2); RDW Standard Deviation 50.4 fL (35.1-46.3)
[2024-12-30 04:32] VITALS: BP 135/65
[2024-12-30 04:46] LABS: Anion Gap 8.0 mmol/L (3-11); Blood Urea Nitrogen 27.0 mg/dL (8-24); CO2, Blood 28.0 mmol/L (21-32); Calcium, Blood 8.9 mg/dL (8.5-10.1); Chloride, Blood 108.0 mmol/L (98-108); Creatinine, Blood 0.66 mg/dL (0.60-1.20); Glucose, Blood 101.0 mg/dL (70-99); Potassium, Blood 3.6 mmol/L (3.5-5.5); Sodium, Blood 140.0 mmol/L (136-145)
--- NOTE | 2024-12-30 07:35 | NUR ---
SHIFT SUMMARY: PT IS A&OX4, [place]. VSS ON 1L VIA NC, PT DOES NOT WEAR OXYGEN AT BASELINE. TITRATED TO RA, PT DID WELL, BUT IS APNEIC AND DESATTED TO 83%. AFIB 60'S-80'S, DID DROP LOW 38 WHEN ASLEEP, ASYMPTOMATIC. DENIES PAIN. TOLERATING A CONS CARB DIET. NOOB THIS SHIFT. USED URINAL INDEPENDENTLY IN BED. VOIDING SMALL, BUT ADEQUATE AMOUNT OF SEVEN COLORED URINE. NO BM THIS SHIFT. BED IN LOWEST POSITION, CALL LIGHT WITHIN REACH. CALLS APPROPRIATELY AND IS ABLE TO ADVOCATE NEEDS EFFECTIVELY.
[2024-12-30 08:00] VITALS: BP 118/85
[2024-12-30 11:24] VITALS: BP 129/72
[2024-12-30] MEDS ORDERED: Sod Ferric Gluc Complx/Sucrose 125 MG in NS 100 ML IV SCH (12:00)
[2024-12-30 16:05] VITALS: BP 125/68
--- NOTE | 2024-12-30 17:41 | NUR ---
PT SUMMARY; PT WAS ABLE TO WORK WITH PHYSICAL AND OCCUPATIONAL THERAPIST FOR THE SHIFT PT ABLE TO PARTICIPATE. PT 1PA VIA FWW AND GAITBLET, PT WAS UP IN THE RECLINER FOR LUNCH TIME. PT HAS POOR APPETITE EATING ABOUT 30-40% OF MEAL TRAY. PT STILL TACHS UP TO 140-150'S WITH EXERTION, ECHO WAS ORDERED SHOWED EF 60-65% AND BI ATRIAL ENLARGEMENT, DR WALKER WAS CONSULTED INCREASED METOPROLOL DOSE TO BID. HRR REMAINED AFIB 70-80'S AT REST SBP 130'S, SATS ABOVE 95% ON RA, AFEBRILE. PT ALSO NOTICED SOME COGNITION ISSUES, PT IS [place] APACHE AT TIMES, PT KEEPS ASKING WHAT IS HE HERE FOR AND THAT HE WANTS TO GO HOME. AND DOESNT RECALL OR REMEMBER GOLD WHEEL BLOCKER AND POLISHER OR DR HAGER TALKING TO HIM ABOUT PLANS CALLED DR HAGER AND MADE AWARE ORDERED MINI MENTAL HEALTH ASSESSMENT PER OCCUPATIONAL THERAPIST AND AGREED WITH SLUMS TEST. TO BE DONE IN AM. SISTER JUAN CAME TO VISIT AND WAS GIVEN REGARDING PT'S STATUS AND WAS AGREEABLE THAT BROTHER HAS SOME COGNITION/MEMORY ISSUES AND HASN'T BEEN ABLE TO TAKE CARE OF HIMSELF ALONE. PT ALSO AHS BEEN C/O BACK PAIN, TYLENOL WAS GIVEN AND WAS EFFECTIVE. PT WAS ALSO HAVING SOME RETENTION ISSUES EVEN AFTER DRINKING 2 CUPS OF WATER THIS AFTERNOON, ABLE TO VOID 100MLS OF URINE IN THE URINAL BUT STILL HAS SOME >250 URINE RETAINED. PT AGREEABLE WITH STRAIGHT CATH IF NEEDED. BUT PT WANTING TO WAIT UNTIL HE FEELS LIKE HE HAS TO GO AGAIN. PT NOW RESTING IN BED. CALL LIGHTS IN REACH WILL REPORT TO ONCOMING SHIFT
[2024-12-30 21:21] VITALS: BP 137/82
[2024-12-31] VITALS (7 sets, daily range): BP systolic 123–140; BP diastolic 58–87
[2024-12-31 03:48] LABS: BASOPHILS ABSOLUTE AUTO 0.00 K/mm3 (0.00-0.23); BASOPHILS PERCENT AUTO 0 % (0-2); EOSINOPHILS ABSOLUTE AUTO 0.03 K/mm3 (0.00-0.68); EOSINOPHILS PERCENT AUTO 0 % (0-6); Hematocrit 28.3 % (37.0-53.0); Hemoglobin 9.2 g/dL (13.5-17.5); IMMATURE GRAN ABSOLUTE AUTO 0.03 K/mm3 (0.00-0.10); IMMATURE GRAN PERCENT AUTO 0 % (0-1); LYMPHOCYTES ABSOLUTE AUTO 0.72 K/mm3 (0.84-5.20); LYMPHOCYTES PERCENT AUTO 11 % (21-46); MONOCYTES ABSOLUTE AUTO 0.38 K/mm3 (0.16-1.47); MONOCYTES PERCENT AUTO 6 % (4-13); Mean Corpuscular HGB Conc 32.5 g/dL (31.5-36.5); Mean Corpuscular Volume 94 fL (80-100); NEUTROPHILS ABSOLUTE AUTO 5.63 K/mm3 (1.96-9.15); NEUTROPHILS PERCENT AUTO 83 % (41-73); NRBC ABSOLUTE 0.00 K/mm3 (0.00-0.02); NRBC Auto 0.0 /100 WBC (0.0-0.2); Platelet Count 114 K/mm3 (150-400); RDW Coefficient Variation 14.6 % (11.7-14.2); RDW Standard Deviation 49.9 fL (35.1-46.3)
[2024-12-31 04:07] LABS: Anion Gap 10.0 mmol/L (3-11); Blood Urea Nitrogen 22.0 mg/dL (8-24); CO2, Blood 26.0 mmol/L (21-32); Calcium, Blood 8.7 mg/dL (8.5-10.1); Chloride, Blood 104.0 mmol/L (98-108); Creatinine, Blood 0.66 mg/dL (0.60-1.20); Glucose, Blood 92.0 mg/dL (70-99); Magnesium, Blood 1.9 mg/dL (1.6-2.4); Potassium, Blood 3.9 mmol/L (3.5-5.5); Sodium, Blood 136.0 mmol/L (136-145)
--- NOTE | 2024-12-31 06:34 | NUR ---
SHIFT SUMMARY PATIENT ALERT AND ORIENTED X3. HAD NO COMPLAINTS OF PAIN OR SHORTNESS OF BREATH. ON ROOM AIR WITH SPO2 >90%. VITAL SIGNS STABLE. NO ACUTE ISSUES NOTED OVERNIGHT. WILL CONTINUE TO MONITOR. CALL LIGHT WITHIN REACH.
[2024-12-31] MEDS ORDERED: Ipratropium/Albuterol SulF 2.5-0.5MG/3 ML Amp INH SCH (09:30)
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
[2025-01-01 03:12] VITALS: BP 123/73
[2025-01-01 04:02] LABS: BASOPHILS ABSOLUTE AUTO 0.01 K/mm3 (0.00-0.23); BASOPHILS PERCENT AUTO 0 % (0-2); EOSINOPHILS ABSOLUTE AUTO 0.02 K/mm3 (0.00-0.68); EOSINOPHILS PERCENT AUTO 0 % (0-6); Hematocrit 28.1 % (37.0-53.0); Hemoglobin 9.2 g/dL (13.5-17.5); IMMATURE GRAN ABSOLUTE AUTO 0.05 K/mm3 (0.00-0.10); IMMATURE GRAN PERCENT AUTO 1 % (0-1); LYMPHOCYTES ABSOLUTE AUTO 0.78 K/mm3 (0.84-5.20); LYMPHOCYTES PERCENT AUTO 13 % (21-46); MONOCYTES ABSOLUTE AUTO 0.40 K/mm3 (0.16-1.47); MONOCYTES PERCENT AUTO 7 % (4-13); Mean Corpuscular HGB Conc 32.7 g/dL (31.5-36.5); Mean Corpuscular Volume 93 fL (80-100); NEUTROPHILS ABSOLUTE AUTO 4.70 K/mm3 (1.96-9.15); NEUTROPHILS PERCENT AUTO 79 % (41-73); NRBC ABSOLUTE 0.00 K/mm3 (0.00-0.02); NRBC Auto 0.0 /100 WBC (0.0-0.2); Platelet Count 120 K/mm3 (150-400); RDW Coefficient Variation 14.7 % (11.7-14.2); RDW Standard Deviation 49.8 fL (35.1-46.3)
[2025-01-01 04:24] LABS: Anion Gap 9.0 mmol/L (3-11); Blood Urea Nitrogen 21.0 mg/dL (8-24); CO2, Blood 28.0 mmol/L (21-32); Calcium, Blood 8.9 mg/dL (8.5-10.1); Chloride, Blood 103.0 mmol/L (98-108); Creatinine, Blood 0.73 mg/dL (0.60-1.20); Glucose, Blood 101.0 mg/dL (70-99); Potassium, Blood 4.2 mmol/L (3.5-5.5); Sodium, Blood 136.0 mmol/L (136-145)
--- NOTE | 2025-01-01 05:58 | NUR ---
SHIFT SUMMARY PATIENT ALERT AND ORIENTED X4. HAD NO COMPLAINTS OF PAIN OR SHORTNESS OF BREATH. ON ROOM AIR WITH SPO2 >90%. VITAL SIGNS STABLE. NO ACUTE ISSUES NOTED OVERNIGHT. WILL CONTINUE TO MONITOR. CALL LIGHT WITHIN REACH.
[2025-01-01 07:18] VITALS: BP 126/68
[2025-01-01] MEDS ORDERED: Budesonide 0.5 MG/2 ML RESP INH SCH (09:30)
--- NOTE | 2025-01-01 15:13 | NUR ---
MET WITH PATIENT AND HIS SISTER JUNA. DR. HAGER AT BEDSIDE. DISCUSSED CODE STATUS. THEY OPTED FOR DNR STATUS WITH LIMITED INTERVENTIONS. POLST COMPLETE, SENT TO REGISTRY, AND RECORDS. WE DISCUSSED HOSPICE. SISTER IS OPEN TO THIS AN OPTION BUT HOUSING IS HER MAIN CONCERN. PLAN IS TO ENCOURAGE WORKING WITH PT AND OT WITH HOPE OF GOING TO SNF TO REGAIN MOBILITY, AND POTENTALLY PLACMENT. SHE IS WORKING ON LTC MEDICADE. EDUCATED ABOUT HOSPICE.
[2025-01-01 15:25] VITALS: BP 135/73
--- NOTE | 2025-01-01 17:09 | NUR ---
PT SUMMARY; NO ACUTE CHANGE FOR THE SHIFT. HAD DISCUSSION WITH PALLIATIVE CARE, DR HAGER AND SISTER THIS MORNING REGARDING PLAN OF CARE AND CODE STATUS, PT TRANSITIONED TO DNR, ARM BAND ON R AM. UNABLE TO DO BARIUM SWALLOW TODAY DUE TO UNAVAILABILITY OF SCHEDULE TODAY. DR WALKER CAME BY WELL NO PACEMAKER FOR NOW. PT'S HRR REMAINED 60-70'S AT REST SVT BEATS PER TELE, DENIES CHEST PAIN/PRESSURE, BP STABLE PT ON ROOMAIR. PT STILL HAS POOR APPETITE, PT NEEDS TO BE ENCOURAGED TO DRINK DARK URINE IN CANISTER. PT WAS UP IN THE RECLINER FOR LUNCH. MEDICATED WITH TRAMADOL FOR PAIN. PLAN FOR PT TO PARTICIPATE WITH THERAPY RECOMMENDING HOME HEALTH AT THIS TIME. SISTER JUAN INVOLVE ON FINDING A PLACEMENT FOR PT. WILL REPORT TO ONCOMING SHIFT
[2025-01-01 20:19] VITALS: BP 126/85
--- NOTE | 2025-01-01 22:53 | NUR ---
PATIENT WILL BE TRANSFERRING TO ROOM 302. REPORT GIVEN TO ZONIA PARTIDA FOR ASSUMPTION OF CARE.
--- NOTE | 2025-01-01 23:20 | NUR ---
PT RECEIVED AT 2306 FROM [facility].
[2025-01-01 23:46] VITALS: BP 140/77
[2025-01-02 04:12] VITALS: BP 127/73
[2025-01-02 04:31] LABS: BASOPHILS ABSOLUTE AUTO 0.01 K/mm3 (0.00-0.23); BASOPHILS PERCENT AUTO 0 % (0-2); EOSINOPHILS ABSOLUTE AUTO 0.04 K/mm3 (0.00-0.68); EOSINOPHILS PERCENT AUTO 1 % (0-6); Hematocrit 26.4 % (37.0-53.0); Hemoglobin 8.5 g/dL (13.5-17.5); IMMATURE GRAN ABSOLUTE AUTO 0.04 K/mm3 (0.00-0.10); IMMATURE GRAN PERCENT AUTO 1 % (0-1); LYMPHOCYTES ABSOLUTE AUTO 0.73 K/mm3 (0.84-5.20); LYMPHOCYTES PERCENT AUTO 15 % (21-46); MONOCYTES ABSOLUTE AUTO 0.36 K/mm3 (0.16-1.47); MONOCYTES PERCENT AUTO 8 % (4-13); Mean Corpuscular HGB Conc 32.2 g/dL (31.5-36.5); Mean Corpuscular Volume 94 fL (80-100); NEUTROPHILS ABSOLUTE AUTO 3.57 K/mm3 (1.96-9.15); NEUTROPHILS PERCENT AUTO 75 % (41-73); NRBC ABSOLUTE 0.00 K/mm3 (0.00-0.02); NRBC Auto 0.0 /100 WBC (0.0-0.2); Platelet Count 118 K/mm3 (150-400); RDW Coefficient Variation 14.6 % (11.7-14.2); RDW Standard Deviation 50.1 fL (35.1-46.3)
--- NOTE | 2025-01-02 04:40 | NUR ---
PATIENT HAS NOT HAS ANY ACUTE EVENTS OVERNIGHT AND VITALS HAVE BEEN STABLE. PATIENT RESTING COMFORTABLY. BED ALARM INITIATED, CALL REEVES WITHIN REACH, POSESSIONS WITHIN REACH.
[2025-01-02 04:51] LABS: Anion Gap 8.0 mmol/L (3-11); Blood Urea Nitrogen 15.0 mg/dL (8-24); CO2, Blood 28.0 mmol/L (21-32); Calcium, Blood 8.8 mg/dL (8.5-10.1); Chloride, Blood 102.0 mmol/L (98-108); Creatinine, Blood 0.69 mg/dL (0.60-1.20); Glucose, Blood 98.0 mg/dL (70-99); Potassium, Blood 4.2 mmol/L (3.5-5.5); Sodium, Blood 134.0 mmol/L (136-145)
[2025-01-02 07:06] VITALS: BP 125/82
[2025-01-02 11:27] VITALS: BP 123/77
[2025-01-02] MEDS ORDERED: Albuterol HFA200 ACT/6.7 GM INH INH SCH (11:30)
[2025-01-02] MEDS ORDERED: Tiotropium Bromide 2.5 MCG/ACT MIST INHAL (10 ACT/4 GM) INH SCH (11:30)
[2025-01-02 15:33] VITALS: BP 140/70
[2025-01-02 19:20] VITALS: BP 125/63
--- NOTE | 2025-01-02 19:36 | NUR ---
SHIFT SUMMARY NO ACUTE CHANGES THIS SHIFT. PT HEART RATE INCREASED TO 150 WHEN TRYING TO SIT UP. SCHEDULED METOPROLOL GIVEN HEART RATE DECREASED TO 90S. PT HAS VERY LITTLE APPETITE, PO INTAKE ENCOURAGED. PT ABLE TO MAKE NEEDS KNOWN, CALL LIGHT IN REACH.
[2025-01-02 23:53] VITALS: BP 125/75
--- NOTE | 2025-01-03 03:46 | NUR ---
Patient alert and oriented, patient can be forgetful, states pain in back, chromic pain most of the time, treated with tramadol, takes medications whole in applesauce, purewick catheter in place, draining clear yellow urine, call light in reach, bed in low and locked position will continue to monitor.
[2025-01-03 05:12] VITALS: BP 124/76
[2025-01-03 07:36] VITALS: BP 127/70
[2025-01-03 11:28] VITALS: BP 130/71
[2025-01-03 16:05] VITALS: BP 126/73
--- NOTE | 2025-01-03 18:04 | NUR ---
SHIFT SUMMARY PT A&OX4 FORGETFUL AT TIMES, ABLE TO MAKE NEEDS KNOWN. LOW MOTIVATION AND LITTLE APPETITE. NO ACUTE CHANGES THIS SHIFT. COOPERATIVE WITH CARE, CALL LIGHT IN REACH.
--- NOTE | 2025-01-03 18:28 | NUR ---
PALLIATIVE CARE VISIT: 1345 MET WITH PT IN HIS ROOM. HE IS AWAKE AND AGREES TO DISCUSS GOC. PT DENIES PAIN, NAUSEA, CONSTIPATION, SOB, STATES HE IS FEELING BETTER. PT DENIES NEEDS. PT GOAL IS TO GO HOME. HE DOES NOT FEEL LIKE DYING NOW THAT HE FEELS BETTER. DISCUSSED CODE STATUS. PT WANTS TO BE A DNR. PT DECLINED COMPLETING A POLST OR ADVANCE DIRECTIVE. STATES MAYBE TOMORROW. HE WANTS TO WATCH HIS TV SHOW.
--- NOTE | 2025-01-03 19:52 | NUR ---
DURING BEDSIDE SHIFT REPORT PT STATED THAT HE "JUST WANTS IT ALL TO END, AND HE HAS BEEN THINKING OF WAYS TO END IT." WITH CLARIFICATION, PT HAS SUICIDAL IDEATIONS AND A PLAN. JAYSON RN STAYED WITH PT, CHARGE ALERTED, NOTIFIED. JAYSON RN AT BEDSIDE UNTIL TRANFER TO ROOM WITH 1:1 SITTER.
[2025-01-03 23:56] VITALS: BP 126/69
[2025-01-04 04:05] VITALS: BP 129/69
--- NOTE | 2025-01-04 04:06 | NUR ---
SHIFT SUMMARY PATIENT A/O X4- RESTING COMFORTABLY IN BED THROUGHOUT THE SHIFT WITH 1:1 SITTER AT BEDSIDE. NO REPORT OF WANTING TO ACTIVELY COMMIT SUICIDE AND STATES THAT HE DOES NOT HAVE A PLAN TO COMMIT SUICIDE. PUREWICK IN PLACE, DRAINING SEVEN URINE. NO COMPLAINTS OF PAIN. BED IN LOWEST POSITION, WILL REPORT TO ONCOMING RN.
[2025-01-04 06:01] LABS: BASOPHILS ABSOLUTE AUTO 0.01 K/mm3 (0.00-0.23); BASOPHILS PERCENT AUTO 0 % (0-2); EOSINOPHILS PERCENT AUTO 1 % (0-6); Hematocrit 28.2 % (37.0-53.0); Hemoglobin 9.0 g/dL (13.5-17.5); IMMATURE GRAN ABSOLUTE AUTO 0.05 K/mm3 (0.00-0.10); IMMATURE GRAN PERCENT AUTO 1 % (0-1); LYMPHOCYTES ABSOLUTE AUTO 0.69 K/mm3 (0.84-5.20); LYMPHOCYTES PERCENT AUTO 12 % (21-46); Mean Corpuscular HGB Conc 31.9 g/dL (31.5-36.5); Mean Corpuscular Volume 96 fL (80-100); NRBC ABSOLUTE 0.00 K/mm3 (0.00-0.02); NRBC Auto 0.0 /100 WBC (0.0-0.2); RDW Coefficient Variation 15.1 % (11.7-14.2); RDW Standard Deviation 51.8 fL (35.1-46.3)
[2025-01-04 06:03] LABS: EOSINOPHILS ABSOLUTE AUTO 0.04 K/mm3 (0.00-0.68); MONOCYTES ABSOLUTE AUTO 0.42 K/mm3 (0.16-1.47); MONOCYTES PERCENT AUTO 7 % (4-13); NEUTROPHILS ABSOLUTE AUTO 4.70 K/mm3 (1.96-9.15); NEUTROPHILS PERCENT AUTO 80 % (41-73); Platelet Count 118 K/mm3 (150-400)
[2025-01-04 06:23] LABS: Anion Gap 8.0 mmol/L (3-11); Blood Urea Nitrogen 15.0 mg/dL (8-24); CO2, Blood 27.0 mmol/L (21-32); Calcium, Blood 9.0 mg/dL (8.5-10.1); Chloride, Blood 103.0 mmol/L (98-108); Creatinine, Blood 0.7 mg/dL (0.60-1.20); Glucose, Blood 104.0 mg/dL (70-99); Potassium, Blood 3.9 mmol/L (3.5-5.5); Sodium, Blood 134.0 mmol/L (136-145)
[2025-01-04 07:32] VITALS: BP 113/74
[2025-01-04 11:04] VITALS: BP 133/75
--- NOTE | 2025-01-04 14:49 | NUR ---
1926- telephone verbal from dr. zacarias to dc the high si order and sitter order.
[2025-01-04] MEDS ORDERED: Atropine Sulfate 1% Opth Soln 2ML BTL SL PRN (16:15)
[2025-01-04] MEDS ORDERED: Morphine Sulfate 20 MG/1ML 1 ML Oral Syringe SL PRN (16:20)
--- NOTE | 2025-01-04 16:20 | NUR ---
PALLIATIVE CARE VISIT: PT HAD SPEECH EVAL/BARRIU, SWALLOW EVAL TODAY WHICH UNFORTUNATELY REVEALED PT HIGH RISK FOR ASPIRATION AND PEG TUBE WAS RECOMMENDED. HOWEVER, DUE TO PT ADVANCED DEMENTIA IT WAS DEEMED UNSAFE. PT NOT INTERESTED IN PEG TUBE EITHER. PT HAS LOST SEVERAL POUNDS, IS NO LONGER AMBULATORY. HE DOES SPEAK IN SENTENCES BUT DOES NOT ALWAYS RESPOND APPROPRIATELY TO QUESTIONS. HE DOES NOT REMEMBER MY VISIT FROM YESTERDAY AT ALL. SPOKE TO SISTER ABOUT CONCERNS OVER THE PHONE. RECOMMENDED HOSPICE CARE AT HER HOUSE. SHE IS ADAMENT SHE CANNOT TAKE CARE OF HIM. SHE HAS NO ROOM IN HER SINGLE WIDE TO PLACE A HOSPITAL BED. SHE STATES SHE HAS MEETING WITH [facility] AT 8 AM TO GET STARTED FOR LTC. ALSO RECOMMENDED WE START COMFORT CARE IN HOSPITAL. EDUCATED SISTER JUAN ON WHAT COMFORT MEASURES ARE. SHE IS AGREEABLE TO COMFORT MEASURES. SHE IS AGREEABLE TO PT EATING FOOD, ALTHOUGH SHE STATES HE HASN'T REALLY BEEN INTERESTED IN FOOD IN A LONG TIME. SPOKE TO DR. HAGER ABOUT ABOVE CONVERSATION. DR. HAGER IS AGREEABLE TO COMFORT CARE, BUT CONTINUE ALL ORAL MEDICATIONS AND START ROXANOL AT 5 MG SL Q2PRN. ORDERS PLACED REQUESTED. PT HAS PULLED HIS IV OUT. DC'D IV MEDICATIONS. DIET STARTED WITH PUREED WITH GOAL MINCED AND MOIST.
[2025-01-04 16:51] VITALS: BP 123/68
--- NOTE | 2025-01-04 18:37 | NUR ---
SHIFT SUMMARY PATIENT IS A&OX 2-3, FORGETFUL. ON ROOM AIR, NO TELE. HE WAS SWITCHED OVER TO COMFORT CARE TODAY FOLLOWING BARIUM SWALLOW STUDY WHICH RESULTS ENCOURAGED PEG TUBE INSERTION. HE IS NOW TAKING HIS MEDICATIONS CRUSHED IN APPLE SAUCE AND ON A PUREED DIET, REGULAR LIQUIDS. HE C/O BACK PAIN FOR WHICH HE IS MEDICATED PER EMAR. HE IS NOT AMBULATING. HE DOES NOT CALL FOR HELP. HE IS CURRENLTY IN BED, BED IS LOW AND CALL LIGHT IS WITHIN REACH.
[2025-01-04 20:18] VITALS: BP 130/71
--- NOTE | 2025-01-05 04:29 | NUR ---
SHIFT SUMMARY PATIENT A/O X3- FORGETFUL AT TIMES. BEDREST THROUGHOUT SHIFT. VERY LITTLE ORAL INTAKE. MEDS CRUSHED IN APPLESAUCE. MEDICATED FOR BACK PAIN X1 AT THE BEGINING OF THE SHIFT- STATED THAT HE WAS COMFORTABLE THE REST OF THE SHIFT. NO ACUTE EVENTS. BED IN LOWEST POSITION, NO ACUTE CHANGES. WILL REPORT TO ONCOMING RN.
[2025-01-05 04:51] VITALS: BP 132/82
[2025-01-05 07:21] VITALS: BP 120/75
--- NOTE | 2025-01-05 12:18 | NUR ---
1200- VERBAL FROM MD HAGER TO MARSHA INSULIN, DC TELE, DC CHEM BG CHECKS AND PLACE PRICE ORDER.
--- NOTE | 2025-01-05 13:59 | NUR ---
COMFORT CARE SUPPORTIVE VISIT. CLARIFICATION OF COMFORT CARE ORDERS. IS CHANGING METOPROLOL FROM ER TO IR SO MEDICATION CAN BE CRUSHED.
--- NOTE | 2025-01-05 19:30 | NUR ---
SUMMARY- AAOX2-3. PT ON RA. BEDREST. PT TURNED Q 2 HRS. PT IS FORGETFUL-NEEDS REORIENTING TO SITUATION EVERY FEW HOURS. PAIN WELL MANAGED WITH EMAR PAIN MEDS. PRICE DRAINING WELL AND PATENT. NO ACUTE EVENTS WITH PT THIS SHIFT.
--- NOTE | 2025-01-06 05:36 | NUR ---
TEST ARCHITECT SUMMARY PT A&OX3. ON COMFORT CARE. NO ACUTE CHANGES THIS SHIFT. COOPERATIVE AND ABLE TO MAKE NEEDS KNOWN WELL. PT HAS BEEN ASLEEP FOR MOST OF THE NIGHT. CHEST RISE/RESPIRATIONS NOTED. PT DENIES ANY NEEDS, INCLUDING PAIN AT THIS TIME. PRICE REMAINS IN FOR COMFORT CARE. DRAINING SEVEN URINE TO GRAVITY. REMAINS FREE OF KINKS/OBSTRUCTIONS. BED RAILS UP X 2, BED IN LOWEST POSITION, BED WHEELS LOCKED, PERSONAL BELONGINGS AND CALL LIGHT WITHIN REACH FOR SAFETY.
--- NOTE | 2025-01-06 18:33 | NUR ---
PT A/OX3, NOT ORIENTED TO SITUATION. PTS PAIN HAS BEEN TREATED PER EMAR. PT REMAINS ON BEDREST WITH COMFORT CARE MEASURES. USES CALL LIGHT APPROPRIATELY. SOMETIMES INCONT. PT HAS A PRICE IN PLACE FOR COMFORT MEASURES DRAINING TO GRAVITY WITH NO KINKS. NO ACUTE NEEDS AT THIS TIME.
--- NOTE | 2025-01-07 04:11 | NUR ---
SHIFT SUMMARY PATIENT ON COMFORT CARE. AXOX 3 AND BEDREST. DENIES CHEST PAIN, SOB, AND N/V. NO S/SX OF PAIN OR REPORTED. PRICE PATENT AND DRAINING TO GRAVITY. NO IV ACCESS. WATCHED TV FIRST PART OF SHIFT. CALL LIGHT IN REACH. BED IN LOWEST POSITION AND ALARM ON. WILL CONTINUE TO MONITOR UNTIL DAY SHIFT NURSE ASSUMES CARE.
--- NOTE | 2025-01-07 11:28 | NUR ---
PALLIATIVE CARE SUPPORTIVE VISIT: ROUNDED ON PT AT 0955. PT APPEARS TO BE SLEEPING. RR E/U, LIGHTLY SNORING. NO S/S OF PAIN OR DISTRESS. CHECKED IN WITH PRIMARY RN AND SHE HAS NO CONCERNS. REVIEWED MEDICATION ADMINISTATION. PT CONTINUES TO TAKE HIS ORAL MEDICATIONS. HE IS TAKING ROXANOL 1-2 TIMES DAILY. NO BM SINCE THE , MOM WAS GIVEN LAST NIGHT PER ORDERS. PT EATING ABOUT 50% OF HIS MEALS.
[2025-01-07] MEDS ORDERED: Albuterol HFA200 ACT/6.7 GM INH INH PRN (14:20)
--- NOTE | 2025-01-07 16:35 | NUR ---
NO ACUTE CHANGES THIS SHIFT. TREATED PAIN PER EMAR. PT REPOSITIONED Q 2HRS AND PER REQUEST. ALERT AND ORIENTED X4. SMALL SMEAR BM THIS AFTERNOON AFTER MOM ADMIN. PRICE DRAINING TO GRAVITY. ABLE TO EXPRESS NEEDS.
--- NOTE | 2025-01-08 04:07 | NUR ---
SHIFT SUMMARY PATIENT ON COMFORT CARE. AXOX 3 AND BEDREST. DENIES CHEST PAIN, SOB, AND N/V. NO IV ACCESS. TAKES MEDS CRUSHED IN APPLESAUCE. PRICE PATENT AND DRAINING TO GRAVITY. SLEPT MOST OF THE SHIFT. CALL LIGHT IN REACH. BED IN LOWEST POSITION AND ALARM ON. WILL CONTINUE TO MONITOR UNTIL DAY SHIFT NURSE ASSUMES CARE.
--- NOTE | 2025-01-08 17:07 | NUR ---
END OF SHIFT NOTE PT ALERT, ORIENTED, ABLE TO MAKE NEEDS KNOWN. PT DOESNT USE HIS CALL LIGHT FOR ASSISTANCE, BUT DOES CALL OUT LOUD. PT REPOST EVERY 2 HOURS. CREAM PLACED ON BUTTOCK DUE TO SKIN BREAKDOWN. PT GIVEN PRN PAIN MEDICATIONS AND ATIVAN. PT GIVEN ATIVAN WHIE WAITING FOR RESP TO COME FOR TREATMENT. PT REQUESTED BREATING TREATMENT. PT HAS A MOIST COUGH, NO SPUTUM. PT HAD A BED BATH. PT HAS MULT SCABS ON ARMS AND LEGS, LOWER LEGS DISCOLORED (BROWN). PT HAD BM TODAY-INCONT. PRICE PATENT WITH SEVEN COLORED URINE. PT NOT EATING MUCH AT ALL. VERY PLEASANT AND COOPERATIVE, DOES STATE HE DOESNT WANT TO LIVE AND WANTS TO KNOW WHEN HE CAN LEAVE HERE AND QUESTIONS ABOUT THE PLAN OF CARE RELATED TO WHERE HE IS GOING TO LIVE AND GET OUT OF HERE.
--- NOTE | 2025-01-09 08:07 | NUR ---
Shift Summary AOx3. Pleasant. [place]. On comfort care. Patient had been comfortable last night. Did not ask for much and declined pain medications when offered this morning. Medicates x 1 tonight w/ roxanol for pain with good effect. Patient slept well through the night. Repositioned q2h prn as patient tolerates. Bed in lowest position. Call light in reach. Care handed off to Cynthia Tang Day RN. Care relinquished.
[2025-01-09] MEDS ORDERED: Peg 400/Hypromellose/Glycerin 15 DROP/ML BTL BOTHEYES PRN (14:40)
[2025-01-09] MEDS ORDERED: Dextran/Hypromellose/Glycerin 15 DROP/ML BTL BOTHEYES PRN (14:50)
--- NOTE | 2025-01-09 16:24 | NUR ---
NO CHANGES TO PT'S CARE PLAN. HE APPEARS TO BE RESTING COMFORTABLY. NO C/O PAIN OR ANXIETY TODAY. CONTINUE TREATING SYMPTOMS NEEDED.
--- NOTE | 2025-01-09 18:28 | NUR ---
SHIFT SUMMARY PATIENT A/OX4, ABLE TO MAKE NEEDS KNOWN. PLEASANT AND COOPERATIVE WITH CARE. PATIENT DENIES PAIN THROUGHOUT THE SHIFT. COMPLAINING OF DRY EYES THIS AFTERNOON, MD NOTIFIED AND LUBRICATING EYE DROPS ORDERED AND ADMINISTERED. DURING PRICE CATH CARE AND INCONTINENT BOWEL EPISODE STAGE II PRESSURE INJURY NOTED TO COCCYX. MD NOTIFIED AND WOUND CARE ORDERS RECIEVED AND PROVIDED. PATIENT CONTINUES TO BE REPOSITIONED Q2 HOURS, FOAM BOOTS PROVIED TO [employer]. NO OTHER CONCERNS AT THIS TIME, WILL CONTINUE TO MONITOR.
[2025-01-09 19:54] VITALS: BP 126/76
--- NOTE | 2025-01-09 21:10 | NUR ---
Physician Contacted: Increase Roxanol William requesting "only a small dose" of pain medication, but "nothing too strong though." Reviewed recent meds given and discussed available options. Patient chose pain med in liquid form, but wanted "a little more" than previously administered the night prior. Gave 5mg SL Roxanol per EMAR and then call made out to Louis Dumas NP to increase Roxanol order for this patient on comfort care. T.O. to change current dose of Roxanol from 5mg to 5-10mg keeping frequency, route, and indication unchanged. New dose range applied.
[2025-01-09] MEDS ORDERED: Morphine Sulfate 20 MG/1ML 1 ML Oral Syringe SL PRN (21:15)
--- NOTE | 2025-01-10 05:10 | NUR ---
Shift Summary AOx3-4. Pleasant. Has been hesitant about respositioning in bed. Unable to find a spot that is most comfortable. Tolerating some repositioning for now, frequent re-education needed. Offered pain meds throughtout the night, patient has declined meds and denied pain except at the beginning of shift. Seems to want roxanol at the beginning of shift, mostly to help with sleep and air hunger. Declined bowel meds, states has had very soft bm's. Otherwise, slept well throughout the night.
[2025-01-10 08:40] VITALS: BP 124/70
--- NOTE | 2025-01-10 19:54 | NUR ---
SHIFT SUMMARY PT A&OX3-4. PT ADMITTED DUE TO SEVERE SEPSIS. PT HESITANT ABOUT REPOSITIONING IN BED, REPOSITIONING ENCOURAGED AND EDUCATED TO PT. PT DECLINED BOWEL MEDS. PT REPORTS PAIN, PAIN MANAGED PER EMAR WITH ROXANOL. COMFORT CARE ASSESSMENTS COMPLETED. MEPILEX CHANGED ON COCCYX. PT HAS PRICE, PRICE DRAINING ADEQUATE WITH NO DEPENDENT LOOPS. PT HAS NO IV ACCESS. PT TAKES MEDS CRUSHED IN APPLESAUCE. PT IN BED, BED IN LOWEST POSITION, LOCKED, CALL LIGHT IN REACH.
--- NOTE | 2025-01-11 05:21 | NUR ---
[id number] PT COMPLAINS OF PAIN IN LOWER EXTREMETIES AND IN BACK. REMOVED HEEL PROTECTORS TO PROVIDE A BREAK FROM THEM HEELS WERE SLIGHTLY BOGGY. ELEVATED HEELS OF THE MATTRESS TO PROTECT THEM, THIS WAS MORE COMFORTABLE FOR THE PATIENT. PT GIVEN 10MG ROXINAL PER MAR FOR COMFORT. PT BEGAN RESTING COMFORTABLY AFTER REPOSITIONING. [id number] PT MAINTAINS REST, THEN WAKES AT 0430 STATES HE IS COMFORTABLE AND DOES NOT WISH TO BE READJUSTED AND DOES NOT HAVE ANY PAIN.
[2025-01-11 07:34] VITALS: BP 127/70
--- NOTE | 2025-01-11 09:00 | NUR ---
pt laying in bed with eyes closed, wakes easily, a/ox3-4, pleasant and cooperative with care, follows commands well, took po meds crushed with applesauce, refused stool softeners, lungs are clear dim in bases, on r/a, resp even and unlabored, no cough noted, hrirr with murmur, no edema noted, ppp faint, cap refill<3 sec, btx4, abd flat soft nontender, voids via quiroz cath draining vinnie urine, skin is pale,frail, dark brown skin to b/l le, heels are a bit red, they are floated, decub to coccyx, has mepilex in place, sam, pt denies pain at this time, states he just wants to sleep, no further needs at this time, call light in reach.
--- NOTE | 2025-01-11 18:41 | NUR ---
pt had an uneventful day, has been turned every few hrs, medicated once for pain, when asked about pain the rest of the day he states he's doing fine, no acute changes this shift. call light in reach.
--- NOTE | 2025-01-12 05:17 | NUR ---
ELEMENTARY CLASSROOM TEACHER SUMMARY PT ON COMFORT CARE. A/OX3-4. ABLE TO MAKE NEEDS KNOWN AND USING CALL LIGHT APPROPRIATELY. PT ROUNDING T/O THE NIGHT. PT DENIES NEED FOR PAIN MED INTERVENTIONS BUT DOES ENDORSE INCREASED PAIN WITH MOVEMENT WHICH QUICKLY ABATES WITH REST. PT HAD 1 INCONT DARK TARRY STOOL. PT PRICE PATENT AND DRAINING TO GRAVITY.
[2025-01-12 07:26] VITALS: BP 130/65
--- NOTE | 2025-01-12 18:14 | NUR ---
NO CHANGE IN PT STATUS . GAVE 10MG OF ROXINOL ONCE.
--- NOTE | 2025-01-13 03:32 | NUR ---
SHIFT SUMMARY: PT DENIES ANY PAIN. PAIN MEDS OFFERED EVERYTIME PT WAS TURNED AND PT DECLINED EVERYTIME AND STATED THEY WERE NOT IN PAIN. PRICE IN PLACE AND DRAINING TO GRAVITY. NO ACUTE CHANGES THIS SHIFT.
--- NOTE | 2025-01-14 05:24 | NUR ---
SHIFT SUMMARY ADMITTED FOR AFIB W/RVR. DNR CODE. NOW COMFORT CARE. PLAN IS FOR DC TO [facility]. TODAY ON HOSPICE. ON RA, PUREE DIET. RX CRUSHED IN [place]. PRICE IN PLACE. PALLIATIVE CARE IS CONSULTED. PSYCH CONSULT IS DR. TIRADO. CARDIAC CONSULT IS DR. WALKER.
[2025-01-14 09:07] VITALS: BP 87/67
--- NOTE | 2025-01-14 11:19 | NUR ---
DISCHARGE NOTE PT A&OX3-4. PT HAS CONFUSION AND FORGETS AT TIMES. PT REPORTS GEN PAIN AND FEET PAIN. PT HAS SORE ON COCCYX, MEPILEX ON BOTTOM. PT MEDICATED FOR PAIN. PT HAS PRICE FOR END OF LIFE. PRICE DRAINING ADEQUATE WITH NO DEPENDENT LOOPS. PT TAKES MEDS CRUSHED WITH APPLESAUCE. PT ON COMFORT CARE. CALLED [facility] TO GIVE REPORT TO RN. REPORTED TO [facility] RN, PT DID NOT GET METOPROLOL THIS AM DUE TO LOW BP. THIS RN CONSULTED WITH [facility]AN[facility] PARTIDA ON FLOOR AND HELD DUE TO CLINICAL JUDGEMENT. HARD SCRIPT SENT WITH PT AND POLST. COPY OF POLST AND SCRIPT IN CHART. INFRASTRUCTURE CONSULTANT SET UP TRANSPORT. TRANSPORT CAME TO TAKE PT TO [facility] BY WHEELCHAIR. PT LEFT WITH PERSONAL BELONGINGS.
[2025-01-14] MEDS ORDERED: Acetaminophen325 M1 PO (11:31)
[2025-01-14] MEDS ORDERED: METO100 PO (11:31)
[2025-01-14] MEDS ORDERED: ALBU90OI INH (11:32)
[2025-01-14] MEDS ORDERED: ARTIFICIAL TEAR15 M7 BOTHEYES (11:33)
[2025-01-14] MEDS ORDERED: DOCU100 PO (11:34)
[2025-01-14] MEDS ORDERED: ONDA4 PO (11:35)
[2025-01-14] MEDS ORDERED: SENN187 PO (11:36)
[2025-01-14] MEDS ORDERED: TIOT18 INH (11:37)
[2025-01-14] MEDS ORDERED: TRAM50 PO (11:38)
--- NOTE | 2025-01-14 15:53 | NUR ---
ROUNDED ON PT THIS AM. CHECKED TO MAKE SURE POLST WAS IN CHART. PATIENT IS COMFORTABLE AT THIS TIME
== END 2025-01-14 11:00 | disposition hospice, home (50) | DRG 308 ==
LOC: ER 20:53 → ERHOLD 20:54 → PCU 12-29 13:46 → MEDS 12-29 15:15 → PCU 12-29 15:16 → MEDS 01-01 23:10
PROVIDERS: Family Medicine; Internal Medicine; Student in an Organized Health Care Education/Training Program; ADMIT Internal Medicine
DX: I48.19 Other persistent atrial fibrillation (principal); J18.9 Pneumonia, unspecified organism; J69.0 Pneumonitis due to inhalation of food and vomit; Q43.9 Congenital malformation of intestine, unspecified; J44.0 Chronic obstructive pulmonary disease with (acute) lower respiratory infection; R45.851 Suicidal ideations; K92.1 Melena; I10 Essential (primary) hypertension; E11.9 Type 2 diabetes mellitus without complications; Z66 Do not resuscitate; Z60.2 Problems related to living alone; E86.0 Dehydration; D50.9 Iron deficiency anemia, unspecified; I35.0 Nonrheumatic aortic (valve) stenosis; R53.1 Weakness; K59.00 Constipation, unspecified; F03.90 Unspecified dementia, unspecified severity, without behavioral disturbance, psychotic disturbance, mood disturbance, and anxiety; E66.9 Obesity, unspecified; R41.81 Age-related cognitive decline; Z79.82 Long term (current) use of aspirin; Z79.899 Other long term (current) drug therapy; Z79.51 Long term (current) use of inhaled steroids; Z85.46 Personal history of malignant neoplasm of prostate; Z90.49 Acquired absence of other specified parts of digestive tract; Z98.890 Other specified postprocedural states; Z87.891 Personal history of nicotine dependence; Z91.148 Patient's other noncompliance with medication regimen for other reason; Z23 Encounter for immunization
CPT/HCPCS: 36415; 71045; 71260; 74230; 80048; 80053; 80162; 81001; 82274; 82607; 82728; 82746; 82947; 83036; 83540; 83550; 83735; 84100; 84145; 85014; 85018; 85025; 85027; 85045; 92526; 92610; 92611; 93005; 93010; 93306; 94640; 94664; 94760; 94762; 97116; 97129; 97130; 97161; 97165; 97530; 99285-25; A9270; G0378; J2916; J3480; J7050; J7120; Q9967